=== PATIENT | female | born 1935 | race Caucasian/White ===

== ENCOUNTER 2017-12-21 08:55 | Inpatient (IN) | payer OTHER ==
[2017-11-16 08:58] VITALS: BMI 28.0
--- NOTE | 2017-11-16 09:42 | PAT Medication Instructions ---
Service Date Nov 16, 2017. Current Home Medication List Alendronate/Cholecalciferol (Fosamax+D 70MG/2800 Iu), 1 TABLET PO WK Calcium Carbonate-Vitamin D (Calcium + D), 1 TAB PO QAM Docusate Sodium (Docusate Sodium), 1 CAP PO BID Escitalopram (Lexapro), 10 MG PO HS Fluticasone Propionate (Nasal) (Flonase Allergy Relief), 2 SPRAYS INTNAS PRN Lorazepam (Ativan), 0.5 MG PO TID PRN for PRN Meclizine Hcl (Meclizine Hcl), 1 TAB PO TID PRN for DIZZINESS Mirabegron (Myrbetriq Er), 25 MG PO HS Omeprazole (Prilosec), 20 MG PO QAM Resveratrol (Resveratrol), 100 MG PO QAM Tramadol (Ultram), 50 MG PO Q6H PRN for RN Trazodone Hcl (Trazodone), 50 MG PO HS [Lisinopril-Hctz], 1 TAB PO QAM [Nystatin Powd], 1 DOSE TOP PRN Medication Instructions For Your Scheduled Surgery -Continue as directed (but do not take on the morning of surgery) Alendronate/Cholecalciferol (Fosamax+D 70MG/2800 Iu), 1 TABLET PO WK - Hold the following medications 2 weeks prior to surgery: Resveratrol (Resveratrol), 100 MG PO QAM - Hold the following medications 24 hours prior to surgery: [Nystatin Powd], 1 DOSE TOP PRN - Hold the following medications the morning of surgery: Calcium Carbonate-Vitamin D (Calcium + D), 1 TAB PO QAM Docusate Sodium (Docusate Sodium), 1 CAP PO BID [Lisinopril-Hctz], 1 TAB PO QAM - Take the following medications the morning of surgery with a sip of water: Fluticasone Propionate (Nasal) (Flonase Allergy Relief), 2 SPRAYS INTNAS PRN ( if needed) Lorazepam (Ativan), 0.5 MG PO TID PRN for PRN (if needed) Meclizine Hcl (Meclizine Hcl), 1 TAB PO TID PRN for DIZZINESS (if needed) Omeprazole (Prilosec), 20 MG PO QAM Tramadol (Ultram), 50 MG PO Q6H PRN for RN (if needed, can be taken up to four hours before surgery) - Take the following medications as scheduled the night before surgery: Docusate Sodium (Docusate Sodium), 1 CAP PO BID Escitalopram (Lexapro), 10 MG PO HS Fluticasone Propionate (Nasal) (Flonase Allergy Relief), 2 SPRAYS INTNAS PRN ( if needed) Lorazepam (Ativan), 0.5 MG PO TID PRN for PRN (if needed) Meclizine Hcl (Meclizine Hcl), 1 TAB PO TID PRN for DIZZINESS (if needed) Mirabegron (Myrbetriq Er), 25 MG PO HS Tramadol (Ultram), 50 MG PO Q6H PRN for RN (if needed) Trazodone Hcl (Trazodone), 50 MG PO HS If you have any questions please call us at [phone] or [phone] or [phone]
--- NOTE | 2017-11-16 10:22 | DIAGNOSTIC IMAGING REPORT ---
CHEST 2 VIEWS ROUTINE CLINICAL HISTORY: Preoperative chest COMPARISON STUDY: No previous studies for comparison. FINDINGS: The cardiac and mediastinal contours are normal. There is no evidence of focal pulmonary consolidation. There is no evidence of failure. No pleural effusions are visualized.[ There is a calcified right upper lobe granuloma. IMPRESSION: No active disease in the chest. Electronically signed by: Darek Collins M.D. 11/16/2017 10:21 AM Dictated Date/Time: 11/16/2017 10:20 AM
[2017-11-16 10:51] LABS: BASO % 0.7 %; BASO ABS # 0.03 K/uL (0-0.2); EOS % 3.6 %; EOS ABS # 0.15 K/uL (0-0.5); HEMATOCRIT 42.8 % (37-47); HEMOGLOBIN 14.2 g/dL (12.0-16.0); IG# 0.01 K/uL (0.00-0.02); INR 0.9 (0.9-1.1); LYMPH % 33.8 %; LYMPH ABS # 1.39 K/uL (1.2-3.4); MEAN CELL VOLUME 89.7 fL (80-100); MEAN CORPUSCULAR HEMOGLOBIN 29.8 pg (25-34); MEAN CORPUSCULAR HGB CONC 33.2 g/dl (32-36); MEAN PLATELET VOLUME 10.8 fL (7.4-10.4); MONO % 11.4 %; MONO ABS # 0.47 K/uL (0.11-0.59); NEUT % 50.3 %; NEUT ABS # 2.06 K/uL (1.4-6.5); PLATELET COUNT 202 K/uL (130-400); PTT PATIENT 24.7 SECONDS (21.0-31.0); RED CELL DISTRIBUTION WIDTH CV 14.3 % (11.5-14.5); RED CELL DISTRIBUTION WIDTH SD 46.9 fL (36.4-46.3); WHITE BLOOD COUNT 4.11 K/uL (4.8-10.8)
[2017-11-16 12:05] LABS: CALCIUM 9.1 mg/dl (8.5-10.1); CREATININE 0.9 mg/dl (0.60-1.20); POTASSIUM 3.8 mmol/L (3.5-5.1)
--- NOTE | 2017-12-15 21:11 | HISTORY & PHYSICAL EXAMINATION ---
DATE OF ADMISSION: 12/21/2017 CHIEF COMPLAINT: Right knee pain. HISTORY OF PRESENT ILLNESS: This is an 82-year-old female who presents for treatment of her right knee. She has a fairly long history of bilateral knee pain and discomfort, right side greater than left. She has been through extensive conservative treatment primarily injections. They were pretty effective initially but became less successful over time. The last shot did not help much at all. The right knee is worse than the left. The more she walks, the more she hurts. She limps as the day goes on. She would like to have her right knee fixed. PAST MEDICAL HISTORY: 1. Hypertension. 2. Anxiety/depression. 3. Arthritis. 4. Gastroesophageal reflux disease. 5. Mild obesity. PAST SURGICAL HISTORY: Hysterectomy. ALLERGIES: CODEINE WHICH CAUSES ITCHING. ALSO, DESCRIBES ALLERGY TO ASPIRIN, WHICH CAUSES GI IRRITATION. CURRENT MEDICINES: Include: 1. Lisinopril. 2. Citalopram. 3. Omeprazole. 4. Alendronate. 5. Calcium. 6. Resveratrol. SOCIAL HISTORY: An 82-year-old female. She is . Fairly active. Does not smoke. FAMILY HISTORY: Negative for heart disease, diabetes, or blood clots. REVIEW OF SYSTEMS: Negative for diabetes, neurologic problems, vascular problems and bleeding disorders. Denies any chest pain or shortness of breath. No history of DVT or PE. No known clotting disorders. PHYSICAL EXAMINATION: GENERAL: Reveals a pleasant elderly female. Looks younger than her stated age. HEENT: Benign. NECK: Supple. No lymphadenopathy. LUNGS: Clear to auscultation. HEART: Regular rate and rhythm. ABDOMEN: Soft, nontender, nondistended. EXTREMITIES: Grossly neurovascularly intact except as follows: Examination of the right knee reveals patient walks independently. She has fairly neutral alignment to her knee. She has a small knee effusion. Range of motion 0-120. No instability. No pain with hip motion. She is tender along the medial and lateral joint lines. X-RAYS: X-ray of the right knee reviewed. Shows some moderate tricompartment DJD. She has moderate disease in all 3 compartments. Still some joint space remaining. A little bit of tibial femoral subluxation. ASSESSMENT: An 82-year-old female with right knee tricompartment degenerative joint disease. She has failed conservative treatment. She would like to have her knee fixed. PLAN: We talked about treatment. She would like to have her right knee replaced. We will take her to the operating room and do a right total knee replacement. The risks and benefits of the procedure were explained to the patient including but not limited to DVT, PE, , infection, neurological injury, vascular injury, bleeding problem, pain, limited range of motion, stiffness, failure to relieve symptoms, incomplete relief of symptoms, need for further surgery in future, fracture, leg length inequality, nerve palsy, incomplete relief of symptoms. The patient understands and desires to proceed. Informed consent was obtained. We did talk about the extended recovery from knee surgery and she is aware of this. She apparently has problems with aspirin so we will use Xarelto for DVT prophylaxis for 1 month postop. We did talk about holding her lisinopril the morning of surgery. THOMAS
[2017-12-21] VITALS (7 sets, daily range): BP systolic 115–184; BP diastolic 71–83; PULSE 60–81; TEMP 36.4–36.6; O2SAT 92–98; Ht 165.1 cm; Wt 78.2 kg
[~2017-12-21] VITALS: Ht 165.1 cm; Wt 78.2 kg
[~2017-12-21 08:55] MED LIST: ACETAMINOPHEN 500 MG TAB PO SCH; BUPIVACAINE 0.25% 30 ML VIAL ONE; BUPIVACAINE 0.5 % 5 MG/1 ML PF 10ML VIAL ONE; BUPIVACAINE LIPOSOME 266 MG, BUPIVACAINE/EPINEPHRINE INJ 50 ML, SODIUM CHLORIDE 0.9% PF... INFIL SCH; CALC600T9 PO; CEFAZOLIN 2000MG IV PUSH 15 ML IV SCH; DEXAMETHASONE SOD INJ 4 MG/ML VIAL ONE; DOCU100C31 PO; ESCI10TA17 PO; EpINEphrine INJ 1MG/ML AMP 1 MG/ML AMP ONE; FAMOTIDINE 20 MG TAB PO SCH; FLUT0.15 INTNAS; FSMD/70 PO; GABAPENTIN 300 MG CAP PO SCH; LACTATED RINGER'S 1000ML 1,000 ML IV SCH; LACTATED RINGER'S 1000ML 500 ML IV SCH; LACTATED RINGER'S 1000ML IV SCH; LISINOPRIL-HCTZ PO; LORA-741 PO; MECL1TAB42 PO; METOCLOPRAMIDE HCL 10 MG TAB PO SCH; MIRA100T PO; NYSTATIN POWD TOP; PRLSR20 PO; RESV100C PO; TRAM-10 PO; TRANEXAMIC ACID INJ 1,000 MG x 1 Bag Intra-Op IV SCH; TRAZ50TA35 PO
--- NOTE | 2017-12-21 09:11 | History & Physical Bridge Note ---
H&P Re-Evaluation Bridge Note: I have examined the patient, reviewed the History & Physical and in the interval since the performance of the History & Physical I have noted the following changes of clinical significance: No changes noted
[2017-12-21] MEDS ORDERED: MIDAZOLAM HCL 1 MG/ML 2ML VIAL ONE (10:43)
[2017-12-21] MEDS ORDERED: FENTANYL CITRATE INJ 50 MCG/1 ML 2 ML VIAL ONE (10:51)
[2017-12-21] MEDS ORDERED: EpHEDrine SULFATE INJ 50 MG/ML AMP IV PRN (11:00)
[2017-12-21] MEDS ORDERED: ONDANSETRON INJ 2 MG/ML 2 ML VIAL IV PRN ×2 (11:00→13:00)
[2017-12-21] MEDS ORDERED: ATROPINE SULFATE 0.1 MG/ML 5ML SYR IV PRN (11:00)
[2017-12-21] MEDS ORDERED: FENTANYL CITRATE INJ 50 MCG/1 ML 2 ML VIAL IV PRN (11:00)
[2017-12-21] MEDS ORDERED: BACITRACIN 50000 UNIT VIAL ONE (11:10)
[2017-12-21] MEDS ORDERED: BUPIVACAINE LIPOSOME 1/3% 266 MG/20 ML VIAL INFIL ONE (11:10)
[2017-12-21] MEDS ORDERED: SODIUM CHLORIDE 0.9% PF 50 ML VIAL ONE (11:10)
[2017-12-21] MEDS ORDERED: BUPIVACAINE 0.25% 30 ML VIAL ONE (11:11)
[2017-12-21] MEDS ORDERED: PROPOFOL IV EMULSION 10 MG/ML 20 ML VIAL IV ONE (11:41)
[2017-12-21] MEDS ORDERED: LIDOCAINE HCL 2% 2 ML VIAL (20MG/ML) ONE (11:41)
--- NOTE | 2017-12-21 12:58 | [facility] Post Operative Brief Note ---
Immediate Operative Summary Operative Date Dec 21, 2017. Pre-Operative Diagnosis Right Knee Degenerative Joint Disease Post-Operative Diagnosis Same as preop Procedure(s) Performed Right Total Knee Arthroplasty Surgeon Dr. Brown Casino Banker Surgeon(s) Ayaz Banks PA-C Estimated Blood Loss 50 ml Findings Consistent with Post-Op Diagnosis Fluids (cc crystalloids) 1300 cc Specimens A. Right Knee Bone and Tissue Drains None Anesthesia Type MAC Spinal Regional Complication(s) none Disposition Accompanied Pt To Recover: no Disposition: Recovery Room / PACU
[2017-12-21] MEDS ORDERED: HYDROmorphone INJ 0.5 MG/0.5 ML SYR IV PRN (13:00)
[2017-12-21] MEDS ORDERED: MAGNESIUM HYDROXIDE SUSP 30 ML UDC PO PRN (13:00)
[2017-12-21] MEDS ORDERED: ZOLPIDEM TARTRATE 5 MG TAB PO PRN (13:00)
[2017-12-21] MEDS ORDERED: TRAMADOL HCL 50 MG TAB PO PRN (13:00)
[2017-12-21] MEDS ORDERED: METOCLOPRAMIDE HCL INJ 5 MG/ML 2 ML VIAL IV PRN (13:00)
[2017-12-21] MEDS ORDERED: ALUMINUM/MAGNESIUM/SIMETH (MAALOX MAX) 30 ML UDC PO PRN (13:00)
[2017-12-21] MEDS ORDERED: SILVER SULFADIAZINE 1% CR 50 GM JAR EXT PRN (13:00)
[2017-12-21] MEDS ORDERED: BISACODYL 10 MG SUPP PR PRN (13:00)
[2017-12-21] MEDS ORDERED: FLUTICASONE PROPIONATE NA SPR 16 GM BTL PRN (13:00)
[2017-12-21] MEDS ORDERED: NYSTATIN POWDER 15GM BTL EXT PRN (13:00)
[2017-12-21] MEDS ORDERED: MECLIZINE HCL 25 MG TAB PO PRN (13:00)
[2017-12-21] MEDS ORDERED: LORAZEPAM 0.5 MG TAB PO PRN (13:00)
--- NOTE | 2017-12-21 13:21 | DIAGNOSTIC IMAGING REPORT ---
R KNEE 1 OR 2 VIEWS ROUTINE CLINICAL HISTORY: Degenerative arthritis POSTOP STUDY COMPARISON: September 2017 DISCUSSION: There are postsurgical changes of a total right knee arthroplasty and patellar resurfacing. The femoral and tibial components appear well seated. Air within the soft tissues is felt to be postsurgical. There are anterior skin josephine present. IMPRESSION: Postsurgical changes of a total right knee arthroplasty. Electronically signed by: Darek Collins M.D. 12/21/2017 1:19 PM Dictated Date/Time: 12/21/2017 1:19 PM
--- NOTE | 2017-12-21 13:26 | Anesthesiology Progress Note ---
Anesthesia Post Op Note Date & Time Dec 21, 2017 at 13:26 Vital Signs Pain Intensity: 0 Vital Signs Past 12 Hours Date Time Temp Pulse Resp B/P (MAP) Pulse Ox O2 Delivery O2 Flow Rate FiO2 12/21/17 13:20 70 13 135/65 99 Nasal Cannula 2 12/21/17 13:10 76 27 135/65 97 Nasal Cannula 2 12/21/17 13:04 36.2 83 16 128/70 95 Nasal Cannula 2 12/21/17 09:25 36.6 81 20 135/83 95 Room Air Notes Mental Status: alert / awake / arousable, participated in evaluation Pt Amnestic to Procedure: Yes Nausea / Vomiting: adequately controlled Pain: adequately controlled Airway Patency, RR, SpO2: stable & adequate BP & HR: stable & adequate Hydration State: stable & adequate Neuraxial Anesthesia: was administered, sensory block is resolving Anesthetic Complications: no major complications apparent
[2017-12-21] MEDS: TRAMADOL HCL 50 MG TAB PO PRN ×2 (17:04→22:18)
[2017-12-21] MEDS: D5W AND 1/2NSS + 20MEQ KCL 1,000 ML IV SCH (17:56)
[2017-12-21] MEDS: FERROUS GLUCONATE 324 MG TAB PO SCH (17:56)
[2017-12-21] MEDS: KETOROLAC TROMETHAMINE 15 MG/ML VIAL IV. SCH ×2 (17:57→23:24)
[2017-12-21] MEDS ORDERED: NURSING VERBAL MED ORDER ONE (18:15)
[2017-12-21] MEDS ORDERED: LISINOPRIL/HCTZ 10/12.5MG TAB PO ONE (18:30)
[2017-12-21] MEDS ORDERED: TRANEXAMIC ACID INJ 1,000 MG in SODIUM CHLORIDE 0.9% 100ML 100 ML IV SCH (19:00)
--- NOTE | 2017-12-21 19:49 | OPERATIVE REPORT ---
DATE OF OPERATION: 12/21/2017 SURGEON: J Luis Brown MD. EMPLOYEE DEVELOPMENT DIRECTOR: CHRISTOPHER Lemos. PREOPERATIVE DIAGNOSIS: Right knee degenerative joint disease. POSTOPERATIVE DIAGNOSIS: Same. PROCEDURE PERFORMED: Right cemented posterior stabilized total knee arthroplasty. COMPLICATIONS: None. ESTIMATED BLOOD LOSS: 50 mL. FLUID REPLACEMENT: 1300 mL of crystalloid fluid replacement. TOURNIQUET TIME: 49 minutes at 300 mmHg. ANESTHESIA: Spinal with adductor canal block. DRAINS: None. SPECIMENS: Right knee sent for pathology. OPERATIVE INDICATIONS: The patient is an 82-year-old fairly active female who has had a long history of bilateral knee pain and discomfort. She has been through extensive conservative treatment. She does have a history of a right knee arthroscopy done in the past. X-ray showed some moderate DJD. She really failed conservative treatment and was really limited by her knee pain and she elected to have total knee arthroplasty. OPERATIVE FINDINGS: Operative findings revealed moderate right knee DJD. She did have some spotty grade 4 changes in all 3 compartments. Most of her degenerative changes were grade 2 and 3. She did have a moderate size joint effusion. Not a lot of osteophytes. There was no significant eburnation. As stated, she did have some focal grade 4 changes in all 3 compartments. OPERATIVE IMPLANTS: Operative implants consisted of: 1. Biomet Vanguard size 65 right posterior stabilizing component. 2. Biomet size 71 tibial tray. 3. A 10 mm posterior stabilized polyethylene insert. 4. A 31 x 8 all poly patella. OPERATIVE PROCEDURE: The patient taken to the operating room, identified and placed on the operative table in supine position. All contact areas were appropriately padded. IV antibiotics were provided by anesthesia team. A spinal anesthetic and adductor canal block had been provided in the holding area. Adler catheter was placed in sterile fashion. Right thigh tourniquet was then placed and the right lower extremity was then prepped and draped in usual sterile fashion. The right leg was elevated and exsanguinated with Esmarch and tourniquet was placed at 300 mmHg. An anterior approach of the right knee was then performed through a longitudinal incision centered over the patella. Sharp dissection carried through the subcutaneous tissue down to the level of the extensor mechanism. Medial parapatellar arthrotomy incision was made. Some subperiosteal dissection was carried out medially. The fat pad resected from beneath the patellar tendon. Lateral patellofemoral ligament was released. Patella was everted and knee was flexed. The osteophytes were taken off the distal femur. ACL and PCL were then released and the distal femur and the tibia subluxated anteriorly. The external tibial alignment jig was then placed in the anterior face of the tibia and adjusted 12 mm medially. Proximal tibial cut was made to remove about 3-4 mm of bone from the medial side. Tibia was sized to a size 71. Attention was then drawn to the femur. The distal femur was entered with a sharp drill bit. Intramedullary canal was suctioned. A right 5 degree valgus cutting guide was placed. The distal femoral cutting block was pinned in place. Distal femoral cut was made to take an additional 3 mm of bone off the distal femur. The femur was then sized and I downsized this in entire size to a 65 narrow medial lateral dimensions of the femur. Even the 65 was going to be a little bit big. The AP cutting block was pinned parallel to the epicondylar axis, which was 4 degrees of external rotation. The anterior cut, anterior chamfer cut, posterior cut, posterior chamfer cuts were made. Box cutting guide was placed and adjusted slight laterally and the box cut was made. The knee was flexed. The remnants of medial lateral menisci were excised. The osteophytes were taken off the posterior aspect of the femur. A trial femoral component was placed. Tibial tray was pinned in maximum external rotation and drill and stem punch were used to create defect in proximal tibia for the tibial tray. The knee was then trialed and the 10 mm insert fit most appropriately. Attention was then drawn to the patella. The patella was cleaned of all soft tissues. Patella thickness measured 20 mm in thickness and cut down to 13. It was sized to a size 31 patella. Lug holes were drilled for 31 patella. Lateral osteophyte was removed. Patella button was placed. Knee was taken through range of motion, patella tracked nicely with no thumbs test. Attention was then drawn toward placement of permanent components. All trial components were removed. A bone plug was placed in the distal femur to limit blood loss. A double batch of Palacos G cement was mixed. A right size 65 posterior stabilized femoral component, size 71 tibial tray, a 10 mm posterior stabilized polyethylene insert, and a 31 x 8 all poly patella then cemented in place. Knee was brought out into full extension until cement hardened and a final cement check was then performed. Pericapsular tissues were injected with a total of 100 mL of a combination of 20 mL of Exparel, 30 mL of normal saline, 50 mL of 0.25% Marcaine with epinephrine. The patient did receive 1 gram of tranexamic acid. The tourniquet was then let down for a tourniquet time of 49 minutes. Hemostasis was assured using electrocautery. The wound was then irrigated with copious amounts of pulsatile lavage solution. Extensor mechanism was then closed with a combination of #1 PDS and #1 Vicryl suture in a [id number] fashion. Extensor mechanism was checked and found to be intact. The subcutaneous tissue then closed with #2 Dexon suture in buried interrupted fashion. Skin was closed skin josephine. Leg was then cleaned, dried and a sterile dressing of Xeroform, 4 x 4, sterile cast padding and Earnest bandage were applied. The patient then transferred to the recovery room in stable condition. The patient tolerated the procedure with no complication. All needle and sponge counts were correct at the end of the operation. I attest to the content of the Intraoperative Record and any orders documented therein. Any exception s are noted below.
--- NOTE | 2017-12-21 20:20 | PROGRESS NOTE ---
DATE: 12/21/2017 SUBJECTIVE: An 82-year-old female postop from a right knee replacement. She is doing well. Pain is controlled. Denies any chest pain or shortness of breath. Not feeling dizzy or lightheaded. OBJECTIVE: VITAL SIGNS: Temperature 36.6. Vital signs stable. Mild hypertension. GENERAL: Reveals a pleasant elderly female patient sitting up in bed and looks comfortable. LUNGS: Clear to auscultation. HEART: Regular rate and rhythm. ABDOMEN: Soft, nontender, nondistended. EXTREMITIES: Grossly neurovascularly intact except as follows: Examination of the right leg reveals the dressing to be clean, dry and intact. She can dorsiflex and plantarflex her foot appropriately. She has brisk refill. X-RAYS: X-ray of the right knee from recovery room reviewed. It shows a right cemented posterior stabilized total knee arthroplasty. Components looked to be in good position. No signs of problems. ASSESSMENT: An 82-year-old female postop from a right knee replacement, doing well. Pain is controlled. She is neurologically intact. PLAN: 1. DVT prophylaxis including thigh-high TEDs, SCDs, and aspirin twice a day. 2. PT/OT. Weight bear as tolerated. Right total knee protocol. 3. Pain control, doing well with current pain regimen. Does not do well with narcotics and will have to be careful to try and limit those. 4. IV antibiotics x24 hours. 5. Disposition: Plan to discharge to home likely with some home health once adequately recovered.
[2017-12-21] MEDS: TRAZODONE HCL 50 MG TAB PO SCH (20:26)
[2017-12-21] MEDS: ESCITALOPRAM OXALATE 10 MG TAB PO SCH (20:26)
[2017-12-21] MEDS: MIRABEGRON ER 25 MG TAB PO SCH (20:26)
[2017-12-21] MEDS: SENNA 8.6 MG TAB PO SCH (20:27)
[2017-12-21] MEDS: DOCUSATE SODIUM 100 MG CAP PO SCH (20:27)
[2017-12-21] MEDS: ACETAMINOPHEN 500 MG TAB PO SCH (20:28)
[2017-12-21] MEDS: CEFAZOLIN IV 1,000 MG in SYRINGE 0 ML IV SCH (20:38)
[2017-12-21] MEDS ORDERED: DOCUSATE SODIUM 100 MG CAP PO SCH (21:00)
[2017-12-22] VITALS (8 sets, daily range): BP systolic 113–156; BP diastolic 60–79; PULSE 65–85; TEMP 36.7–36.9; O2SAT 91–95
[2017-12-22] MEDS: D5W AND 1/2NSS + 20MEQ KCL 1,000 ML IV SCH ×2 (03:02→12:32)
[2017-12-22] MEDS: CEFAZOLIN IV 1,000 MG in SYRINGE 0 ML IV SCH (03:36)
[2017-12-22] MEDS: KETOROLAC TROMETHAMINE 15 MG/ML VIAL IV. SCH ×4 (05:30→23:40)
[2017-12-22] MEDS: ACETAMINOPHEN 500 MG TAB PO SCH ×3 (05:30→22:11)
[2017-12-22] MEDS ORDERED: ULT50X PO (07:55)
[2017-12-22] MEDS ORDERED: ACET-24 PO (07:55)
[2017-12-22] MEDS ORDERED: XRL10 PO (07:55)
[2017-12-22 07:56] LABS: HEMOGLOBIN 11.3 g/dL (12.0-16.0); MEAN CORPUSCULAR HEMOGLOBIN 29.6 pg (25-34); MEAN CORPUSCULAR HGB CONC 33.2 g/dl (32-36); PLATELET COUNT 211 K/uL (130-400); WHITE BLOOD COUNT 10.56 K/uL (4.8-10.8)
--- NOTE | 2017-12-22 07:57 | Discharge Instructions ---
Discharge Instructions Date of Service Dec 22, 2017. Admission Reason for Admission: Right Knee Degenerative Joint Disease Discharge Discharge Diagnosis / Problem: Right Knee Replacement Discharge Goals Goal(s): Decrease discomfort, Improve function, Increase independence, Improve disease control, Therapeutic intervention Activity Recommendations Activity Limitations: per Instructions/Follow-up section Weightbearing Status: Right weightbearing . Instructions / Follow-Up Instructions / Follow-Up ACTIVITY RECOMMENDATIONS: Physical Therapy: * You will go to physical therapy three times each week for four to six weeks after your surgery in order to regain your knee range of motion and to retrain your knee to work properly. * It is just as important to make sure you are getting your knee perfectly straight as it is to regain your knee bend. * Taking a pain pill an hour before therapy can help you have a more productive and comfortable therapy session. Home Exercise: * You were shown a series of exercises (heel props, heel slides, etc.) in the hospital. Do these exercises three to four times each day including the exercises you were shown in physical therapy. Walking: * Get up and walk several times each day. For the first four weeks, try not to stand or walk for more than one hour at a time. If you do stand or walk for more than one hour, you will not hurt anything, but your knee and leg will likely swell. * As you feel comfortable, you may change from the walker or crutches to a cane and then to independent walking. MEDICATIONS: New Medicine: * You will likely be taking one or more of these medications: 1. Tramadol - A quick and shorter-acting pain medication. Take one to two tablets every four to six hours to lessen your pain. 2. Xarelto - Thins your blood to lessen the chance of forming a blood clot. * The most common side effects of pain medicine and iron are nausea and constipation. If nausea or constipation is too much of a problem or if you have any questions about your new medicines or doses, call [facility] at . We will try to help you manage these issues. VERY IMPORTANT TO READ AND REVIEW" Pain: * The immediate post-operative period after knee replacement surgery is often quite painful. * You are given a prescription for pain medicine. You should take it, as directed, when you need it, especially before physical therapy and before going to bed. Pain that interferes with sleep is very common and can last several months. * You will likely need pain medicine for the first four to six weeks. It will not stop all of the pain. The pain will lessen and as you feel better, you may change to milder pain medicine such as Tylenol. * The most common side effects of pain medicine are nausea and constipation, so don't take more than you need. SPECIAL CARE INSTRUCTIONS: TEDs/Elastic Stockings: * The white elastic stockings help limit swelling and prevent blood clots from forming in your legs. The more you wear them, the more they work. * Wear them for six weeks after knee replacement surgery and four weeks after partial knee replacement. Prevention of Infection: * Take antibiotics one hour before any dental cleaning, dental work, urological procedure, gastrointestinal procedure or any invasive surgery in order to prevent your new joint from getting infected. * You may get the antibiotics from the doctor performing the procedure or you may call our office at before and we will call in a prescription to the pharmacy of your choice. Things to Watch For: * Drainage from the incision site that occurs more than one week after your surgery. * Severely increased knee/leg pain or swelling. * Increased redness at the incision site. * Fever above 102 degrees Fahrenheit. * Unusual chest pain or shortness of breath. * Unusual pain or burning with urination. Call [facility] at with any of the above problems or if you have any questions about your medicines or recovery. FOLLOW UP VISIT: Make an appointment to see your doctor for approximately two weeks after surgery for a progress check and staple removal by calling the office at . Current Hospital Diet Patient's current hospital diet: Regular Diet Discharge Diet Recommended Diet: Regular Diet Procedures Procedures Performed: Right Total Knee Arthroplasty Pending Studies Studies pending at discharge: no Medical Emergencies . Who to Call and When: Medical Emergencies: If at any time you feel your situation is an emergency, please call [phone] immediately. . Non-Emergent Contact Non-Emergency issues call your: Surgeon . "Provider Documentation" section prepared by J Luis Brown. .
--- NOTE | 2017-12-22 08:00 | PROGRESS NOTE ---
DATE: 12/22/2017 SUBJECTIVE: An 82-year-old female postop day 1 from right total knee replacement. She is doing pretty well. Some pain, but manageable. No chest pain or shortness of breath. Not feeling dizzy or lightheaded. OBJECTIVE: VITAL SIGNS: Temperature 36.9. Vital signs stable. EXTREMITIES: Examination of the right leg reveals the dressing to be clean, dry and intact. Leg is well aligned. She can dorsiflex and plantarflex her foot appropriately. She is neurologically intact. LABORATORY DATA: Labs are pending. ASSESSMENT: An 82-year-old female postop day 1 from right knee replacement, doing pretty well. Pain is controlled. Blood pressure is improved. PLAN: 1. DVT prophylaxis including thigh-high TEDs, SCDs, and Xarelto, which we will start 24 hours postop due to her aspirin sensitivity. 2. PT/OT. Weight bear as tolerated. Right total knee protocol. 3. Pain control, doing well with current pain regimen. 4. Disposition: Plan to discharge to home with some home health once adequately recovered.
[2017-12-22 08:19] LABS: CREATININE 0.9 mg/dl (0.60-1.20); POTASSIUM 3.8 mmol/L (3.5-5.1)
[2017-12-22] MEDS ORDERED: RESVERATROL 100 MG PO SCH (09:00)
[2017-12-22] MEDS ORDERED: PANTOprazole SOD 40 MG TAB PO SCH (09:00)
[2017-12-22] MEDS: CALCIUM 600MG + VIT D 400 IU TAB PO SCH (09:24)
[2017-12-22] MEDS: DOCUSATE SODIUM 100 MG CAP PO SCH ×2 (09:24→22:11)
[2017-12-22] MEDS: FERROUS GLUCONATE 324 MG TAB PO SCH ×3 (09:24→17:44)
[2017-12-22] MEDS: MULTIVITAMIN TAB PO SCH (09:24)
[2017-12-22] MEDS: LISINOPRIL/HCTZ 10/12.5MG TAB PO SCH (09:25)
[2017-12-22] MEDS: TRAMADOL HCL 50 MG TAB PO PRN ×3 (09:25→19:36)
[2017-12-22] MEDS: PANTOprazole SOD 40 MG TAB PO SCH (09:25)
--- NOTE | 2017-12-22 10:43 | Anesthesiology Progress Note ---
Anesthesia Post Op Note Date & Time Dec 22, 2017 at 10:42 Vital Signs Vital Signs Past 12 Hours Date Time Temp Pulse Resp B/P (MAP) Pulse Ox O2 Delivery O2 Flow Rate FiO2 12/22/17 10:00 95 Room Air 12/22/17 09:13 94 Room Air 12/22/17 07:30 36.8 65 14 130/60 (83) 94 Room Air 12/22/17 03:03 36.9 85 14 114/72 (86) 95 Room Air 12/21/17 23:25 Room Air 12/21/17 23:13 36.6 76 15 129/72 (91) 92 Room Air Notes Mental Status: alert / awake / arousable, participated in evaluation Pt Amnestic to Procedure: Yes Nausea / Vomiting: adequately controlled Pain: adequately controlled Airway Patency, RR, SpO2: stable & adequate BP & HR: stable & adequate Hydration State: stable & adequate Neuraxial Anesthesia: sensory block resolved Anesthetic Complications: no major complications apparent
[2017-12-22] MEDS: RIVAROXABAN 10 MG TAB PO SCH (13:51)
[2017-12-22] MEDS: ESCITALOPRAM OXALATE 10 MG TAB PO SCH (22:10)
[2017-12-22] MEDS: TRAZODONE HCL 50 MG TAB PO SCH (22:10)
[2017-12-22] MEDS: MIRABEGRON ER 25 MG TAB PO SCH (22:10)
[2017-12-22] MEDS: SENNA 8.6 MG TAB PO SCH (22:10)
[2017-12-23] MEDS: ACETAMINOPHEN 500 MG TAB PO SCH (06:14)
[2017-12-23] MEDS: KETOROLAC TROMETHAMINE 15 MG/ML VIAL IV. SCH (06:14)
[2017-12-23 07:22] VITALS: BP 155/81; PULSE 69; TEMP 36.6; O2SAT 95
--- NOTE | 2017-12-23 07:45 | PROGRESS NOTE ---
DATE: 12/23/2017 SUBJECTIVE: An 82-year-old white female postop day 2 from right knee replacement. She is doing pretty well. Pain is controlled. Denies any chest pain or shortness of breath. Not feeling dizzy or lightheaded. OBJECTIVE: VITAL SIGNS: Temperature 36.6. Vital signs stable. GENERAL: Reveals a pleasant elderly female. She is sitting up in bed and looks pretty comfortable. EXTREMITIES: Examination of the right leg reveals the dressing to be in place. A little bit of bloody drainage in the inferior aspect. Calf is soft and supple. She can dorsiflex and plantarflex her foot appropriately. She is neurologically intact. ASSESSMENT: An 82-year-old white female postop day 2 from right knee replacement, doing pretty well. Pain is reasonably well controlled. PLAN: 1. DVT prophylaxis including thigh-high TEDs, SCDs, and Xarelto for 30 days. 2. PT/OT. Weight bear as tolerated. Right total knee protocol. 3. Pain control. Doing reasonably well with current pain regimen. 4. Disposition: Plan to discharge to home with some home health later today.
[2017-12-23 07:50] VITALS: BP 155/81; PULSE 69; TEMP 36.6; O2SAT 95
[2017-12-23] MEDS: LISINOPRIL/HCTZ 10/12.5MG TAB PO SCH (09:06)
[2017-12-23] MEDS: PANTOprazole SOD 40 MG TAB PO SCH (09:06)
[2017-12-23] MEDS: FERROUS GLUCONATE 324 MG TAB PO SCH (09:06)
[2017-12-23] MEDS: CALCIUM 600MG + VIT D 400 IU TAB PO SCH (09:06)
[2017-12-23] MEDS: RIVAROXABAN 10 MG TAB PO SCH (09:06)
[2017-12-23] MEDS: TRAMADOL HCL 50 MG TAB PO PRN (09:06)
[2017-12-23] MEDS: MULTIVITAMIN TAB PO SCH (09:06)
[2017-12-23] MEDS: DOCUSATE SODIUM 100 MG CAP PO SCH (09:54)
== END 2017-12-23 13:55 | disposition home health service (06) | DRG 470 ==
LOC: C.ACU 08:55 → C.MSN 13:03 → ENRESERV 13:27
PROVIDERS: ADMIT Orthopaedic Surgery Sports Medicine; ATTEND Orthopaedic Surgery Sports Medicine
PROC: 0SRC0J9 Replacement of Right Knee Joint with Synthetic Substitute, Cemented, Open Approach (ICD-10-PCS; principal; 2017-12-21 11:00)
DX: M17.11 Unilateral primary osteoarthritis, right knee (principal); I10 Essential (primary) hypertension; F41.9 Anxiety disorder, unspecified; F32.9 Major depressive disorder, single episode, unspecified; K21.9 Gastro-esophageal reflux disease without esophagitis; Z90.710 Acquired absence of both cervix and uterus; Z88.5 Allergy status to narcotic agent; Z88.6 Allergy status to analgesic agent

== ENCOUNTER 2021-02-23 11:33 | Inpatient (IN) ==
[2021-02-23 12:12] LABS: Basophils # (auto) 0.01 K/uL (0-0.2); Basophils % (auto) 0.2 %; Hematocrit (blood only) 41.7 % (37-47); Immature Granulocytes # (auto) 0.04 K/uL (0.00-0.02); Immature Granulocytes % (auto) 0.7 %; Lymphocytes # (auto) 0.49 K/uL (1.2-3.4); Lymphocytes % (auto) 8.2 %; Mean Corpuscular Hemoglobin 30.6 pg (25-34); Mean Corpuscular Hgb Conc 33.6 g/dL (32-36); Mean Corpuscular Volume 91.2 fL (80-100); Mean Platelet Volume 10.4 fL (7.4-10.4); Monocytes # (auto) 0.24 K/uL (0.11-0.59); Neutrophils # (auto) 5.23 K/uL (1.4-6.5); Neutrophils % (auto) 86.9 %; Platelet Count 130 K/uL (130-400); RDW Coefficient of Variation 14.2 % (11.5-14.5); RDW Standard Deviation 48.1 fL (36.4-46.3); Red Blood Count 4.57 M/uL (4.2-5.4); White Blood Count 6.01 K/uL (4.8-10.8)
[2021-02-23] MEDS ORDERED: MECLIZINE HCL 25 MG TAB PO STA (12:13)
[2021-02-23] MEDS ORDERED: ONDANSETRON INJ 2 MG/ML 2 ML VIAL IV STA (12:13)
[2021-02-23] MEDS ORDERED: SODIUM CHLORIDE 0.9% 1000ML 1,000 ML IV SCH ×2 (12:14→17:36)
[2021-02-23 12:38] LABS: Alanine Aminotransferase 51 U/L (12-78); Albumin Level 3.3 gm/dl (3.4-5.0); Aspartate Aminotransferase 67 U/L (15-37); BUN Creatinine Ratio 25.9 (10-20); Blood Urea Nitrogen 23 mg/dl (7-18); Calcium 8.2 mg/dl (8.5-10.1); Carbon Dioxide 27 mmol/L (21-32); Chloride 98 mmol/L (98-107); Creatinine Clr Calc Pharmacy 48.8 ml/min; Est GFR (African American) 68.5 ml/min; Est GFR (Non-African American) 59.1 ml/min; Glucose 123 mg/dl (70-99); Magnesium 2.3 mg/dl (1.8-2.4); Potassium 3.7 mmol/L (3.5-5.1); Sodium 133 mmol/L (136-145)
[2021-02-23 12:43] LABS: Albumin Globulin Ratio 0.9 (0.9-2); Alkaline Phosphatase 68 U/L (45-117); Globulin 3.6 gm/dl (2.5-4.0); Total Protein 6.9 gm/dl (6.4-8.2); Troponin I < 0.015 ng/ml (0-0.045)
[2021-02-23 12:57] LABS: Appearance Urine Cloudy (Clear); Blood Urine 2+ (Negative); Color Urine Dark Yellow; Epithelial Cell Urine Auto >30 /lpf (0-5); Glucose Urine UA Negative (Negative); Ketones Urine 1+ (Negative); Leukocyte Esterase Urine 2+ (Negative); Nitrite Urine Negative (Negative); Protein Urine 2+ (Negative); Urobilinogen Urine Negative (Negative); WBC Urine Automated >30 /hpf (0-5); pH Urine 5.5 (4.5-7.5)
[2021-02-23 13:02] LABS: Bilirubin Urine 1+ (Negative)
[2021-02-23 13:05] LABS: Influenza A virus by PCR Negative (Negative); Influenza B virus by PCR Negative (Negative)
--- NOTE | 2021-02-23 13:40 | XRay Report ---
XR chest 1V portable CLINICAL HISTORY: SEPSIS COMPARISON STUDY: Chest radiograph November 16, 2017. FINDINGS: Lung volumes are normal. Lungs are clear. There is no pneumothorax or pleural effusion. Car diac size is normal. Mediastinal contours are normal. There is no evidence for pulmonary edema. Calci fied right midlung nodule is present. This is unchanged. Suspected calcified right hilar and subcarin al lymph nodes are unchanged and suggest previous granulomatous process. IMPRESSION: No acute cardiopulmonary findings. ACT 112: Negative or not required by law. Electronically signed by: Steffen Calderon M.D. 02/23/2021 1:38 PM
[2021-02-23 13:46] LABS: Partial Thromboplastin Ratio 1.1; Partial Thromboplastin Time 28.2 Seconds (21.0-31.0); Prothrombin Time 10.2 Seconds (9.0-12.0)
[2021-02-23 13:59] LABS: Cast Urine Automated 0 /lpf (0-5); Mucus Urine Present (None Prsent)
[2021-02-23 14:00] LABS: Amorphous Sediment Urine Present (None Prsent); Bacteria Urine Automated 1+ (Negative)
--- NOTE | 2021-02-23 14:17 | CT Scan Report ---
CT head/brain wo con CLINICAL HISTORY: dizziness COMPARISON STUDY: No previous studies for comparison. TECHNIQUE: Axial CT of the brain is performed from the vertex to the skull base. IV contrast was not administered for this examination. A dose lowering technique was utilized adhering to the principles of ALARA. CT DOSE: FINDINGS: No acute intracranial hemorrhage, no midline shift or space occupying lesions seen. Evaluation is slightly limited due to motion and beam hardening artifact. Mild atrophic changes of brain parenchyma are seen and associated with ex vacuo dilatation of ventric les. No significant white matter changes are seen. No acute depressed skull fractures seen. Visualized paranasal sinuses are patent and well-aerated. Partial opacification of inferior right mas toid air cells might represent mastoiditis. IMPRESSION: No acute intracranial hemorrhage, no midline shift or space occupying lesions. Possible mastoiditis on the right. Please correlate these findings with clinical presentation and ankita or history of mastoiditis. Atrophic changes of brain parenchyma associated with the axial, dilatation of ventricles. ACT 112: Negative or not required by law. The above report was generated using voice recognition software. It may contain grammatical, syntax o r spelling errors. Electronically signed by: Deidre Hu DO 02/23/2021 2:15 PM
--- NOTE | 2021-02-23 14:27 | CT Scan Report ---
CT SCAN OF THE ABDOMEN AND PELVIS WITHOUT CONTRAST CLINICAL HISTORY: fever hematuria COMPARISON STUDY: No previous studies for comparison. TECHNIQUE: CT scan of the abdomen and pelvis was performed from the lung bases to the proximal femurs . Images are reviewed in the axial, sagittal, and coronal planes. IV contrast was not administered fo r this examination. A dose lowering technique was utilized adhering to the principles of ALARA. CT DOSE: 1115.65 mGy.cm FINDINGS: Lower chest: Mild atelectasis at the dependent portions of bilateral lower lobes. Liver: The unenhanced liver is normal in size, contour, and attenuation. There is no intrahepatic tarah iary ductal dilatation. Gallbladder: Unremarkable. Spleen: Spleen is prominent. Multiple calcification within splenic parenchyma are seen and could repr esent sequela from remote granulomatous process. Pancreas: Unremarkable. Adrenal glands: Unremarkable. Kidneys: No hydronephrosis or nephrolithiasis seen. Extrarenal pelvis is seen on the right. Bowel: Small hiatal hernia is seen. Duodenal diverticulum was demonstrated. Bowel loops are nondilate d. Appendix is not well seen. Diverticulosis of sigmoid colon is seen. Questionable focal area of sli ghtly increased fat stranding surrounding distal sigmoid colon within inferior portion of the right p sonya is seen and might represent developing diverticulitis (5/377) Peritoneum: There is no intraperitoneal free air or abdominal ascites. Vasculature: The abdominal aorta is tortuous with scattered calcifications of its wall. No aortic dil atation is seen. Adenopathy: None. Pelvic viscera: Normal appearance of the bladder which is fluid-filled. Uterus is surgically absent. Pelvic ring is demonstrated. Skeletal structures: Multilevel degenerative changes of the spine. IMPRESSION: 1. No hydronephrosis or nephrolithiasis. 2. Fluid-filled urinary bladder. Pelvic ring. 3. Possible developing diverticulitis within inferior right aspect of the pelvis as detailed above. 4. Small hiatal hernia. 5. Other findings as above. ACT 112: Negative or not required by law. The above report was generated using voice recognition software. It may contain grammatical, syntax o r spelling errors. Electronically signed by: Deidre Hu DO 02/23/2021 2:26 PM
--- NOTE | 2021-02-23 14:52 | History & Physical Report ---
Date of Service February 23, 2021 Assessment & Plan (1) Nausea and vomiting: -Admit to med telemetry -NSS at 80 mL/h x 1 L, allow clear liquid diet since she is drinking at bedside and tolerating it, advance diet as tolerated -Continue antiemetics -No signs for hematemesis, hematochezia, tarry stools, diarrhea, etc. - CT of the head reviewed showing concern for right-sided mastoiditis, no redness, tenderness, or history of such. She reports dizziness however this is chronic in the past few years, follows with neurology as an outpatient, meclizine improves her symptoms which she did take today and helped. -CT of the abdomen is reviewed showing questionable diverticulitis, however she is not acutely tender on examination, nondistended, no changes in bowel habits. -We will continue on IV Rocephin, Flagyl and vancomycin as was started in the ER to cover these possible multiple infectious sources. Unsure at this time which source is causing the majority of her symptoms. - Abd pain associated with pessary - will consult [employer] to see if able to be removed here and refitted. (2) UTI (urinary tract infection): -Suspected -UA appears to be dirty with + esterase, >30 WBC, 1+ bacteria -Patient denies any urinary symptoms including frequency dysuria or hematuria -She reports having uncomfortable pessary which she has been followed as an outpatient for, reports that it is causing abdominal aching and pain, has difficulty sitting, nearly not able to perform ADLs due to distraction from pain -[employer]IVE consult (3) Vertigo: - Hx of Vestibular migraine? followed with neurology as an outpatient for vocal tremor/paralysis? - Reports meclizine helps with sx but that this has been chronic - Consult neuro for recs regarding if mastoiditis above concerning/causing vertigo (4) Hyponatremia: -Likely secondary to GI losses, 133 on admission, replace with NSS. -Monitor a.m. BMP (5) HTN (hypertension): - Holding HCTZ while giving IVFs - Continue lisinopril, creatinine currently stable at 0.9, BUN 23 (6) Osteoarthritis: -History of such, uses Tylenol 1300 mg typically daily for pain - will convert to q6h dosing since do not have extended release tylenol here. -Took this amount of Tylenol yesterday for fever of 101.5 at home (7) Osteoporosis: -Takes Fosamax once weekly on , missed last week's dose due to nausea vomiting. (8) GERD (gastroesophageal reflux disease): -Continue omeprazole 40 mg every morning (9) Anxiety: - may continue trazodone 100 mg HS for sleep, and lorazepam 0.5 mg prn, she typically only uses this once every other day. DVT ppx: - teds, scds CODE: Full code Dispo: From home, likely to remain in the hospital x 1-2 days History of Present Illness Primary Care Provider: Merritt Mac MD This is an 85-year-old female with PMHx of hypertension, GERD with small hiatal hernia, osteoarthritis, osteoporosis, anxiety, who presents to the ER for not feeling well x 4 days. She was seen at urgent care clinic earlier today. Complaints of nausea/vomiting started last night, weakness, fatigue and malaise today, with tmax of 100.7 here in the ER. She had fever of 101.7 at home yesterday, but resolved with tylenol. She had an episode of vertigo this morning and took meclizine which seemed to improve her dizziness. She has had ongoing issues with dizziness for many months. She has previously followed with neuro. Pt notes she typically uses meclizine which improves her sx, at least daily. Pt reports some blurred vision last night and currently a faint headache. She does not endorse room spinning. Pt did have issues with balance earlier today where typically she walks without difficulty. Pt was concerned that she had COVID but on testing she is COVID-19 negative in the ER. She received the COVID-19 vaccine in November. Her daughter is present with her here at bedside and supports the history. UA is dirty, positive esterase, >30 WBC, 1+ bacteria, WBC = 10.56. Febrile with Tmax of 100.7. She is slightly hyponatremic with sodium of 133. procal is 0.58. CT of the head is concerning for a possible right sided mastoiditis however the patient does not provider ROS regarding pain, drainage from ear, meningeal symptoms. CT of the abd/pelvis is concerning for a possible diverticulitis as well. Allergies Allergy/AdvReac Type Severity Reaction Status Date / Time codeine Allergy Mild ITCHY Verified 02/23/21 14:26 aspirin AdvReac Mild ADBOMINAL Verified 02/23/21 14:26 PAIN morphine AdvReac Mild DISORIENTED Verified 02/23/21 14:26 -"GOONY" Home Medications Medication Instructions Recorded Confirmed Type calcium carbonate-vitamin D3 1 cap PO QAM #0 11/16/17 02/23/21 History [Calcium 600 with Vitamin D3] docusate sodium 100 mg PO BID 7 Days #14 cap 11/16/17 02/23/21 History escitalopram oxalate 10 mg PO HS #0 tab 11/16/17 02/23/21 History fluticasone propionate [Flonase 2 spray INTRANASAL DAILY PRN #0 11/16/17 02/23/21 History Allergy Relief] lorazepam 0.5 mg PO TID PRN #0 tab 11/16/17 02/23/21 History meclizine 25 mg PO TID PRN 10 Days #30 tab 11/16/17 02/23/21 History mirabegron 25 mg PO HS #0 tab 11/16/17 02/23/21 History nystatin 1 applic TOPICAL DAILY PRN #0 11/16/17 02/23/21 History omeprazole 40 mg PO QAM #0 cap 11/16/17 02/23/21 History acetaminophen [Tylenol Arthritis] 1,300 mg PO Q12H PRN 02/23/21 02/23/21 History alendronate 70 mg PO WK 02/23/21 02/23/21 History hydrochlorothiazide 12.5 mg PO QAM 02/23/21 02/23/21 History lisinopril 10 mg PO QAM 02/23/21 02/23/21 History trazodone 100 - 150 mg PO HS 02/23/21 02/23/21 History Past Med/Surg History Medical History (Updated 02/23/21 @ 19:35 by Denise Lubin PA-C) GERD (gastroesophageal reflux disease) HTN (hypertension) No pertinent family history Osteoarthritis Osteoporosis Surgical History (Updated 02/23/21 @ 15:22 by Lowell Garcia) No pertinent past surgical history Social History Smoking Status: Unknown if ever smoked Second Hand Exposure: No; Do You Dip or Chew Tobacco: No; Tobacco Cessation Education Requested by Patient: No Hx Alcohol Use: No Hx Substance Use: No Preferred Language: Chadian Communication Ability: Effective Beliefs That Will Affect Care: None Current Living Situation: Spouse Other Information That Helps Us Care for You: Yes Feels Safe at Home: Yes Safety Concerns: Feels Safe At This Time Review of Systems Review of Systems: Constitutional: + fever, + sweats, no chills Eyes: No diplopia, no worsening or blurred vision ENT: normal hearing, no trouble swallowing Respiratory: No cough, sputum, dyspnea at rest or on exertion Cardiovascular: No chest pain, tightness or palpitations Abdomen: No pain, + nausea, +vomiting, no diarrhea or constipation, last BM was this morning was formed and soft. Musculoskeletal: + diffused malaise, chronic arthritis and baseline joint pain is exacerbated, no calf pain, no swelling Neurologic: + generalized weakness, + had difficulty walking today, no numbness/tingling, or balance problems at baseline Psychiatric: + anxiety and uses benzo for relief about once every other day. Skin: No rash or itch Physical Exam Physical Exam: General: awake, alert, no apparent distress Head: Normocephalic, atraumatic ENT: PERRL, EOMI, no pharyngeal exudate, mucous membranes slightly dry Chest: Clear to auscultation, on room air, no adventitious breath sounds Cardiac: Regular rate and rhythm, no murmur, no JVD, normal peripheral pulses, good capillary refill Abdominal: NABS x 4 quadrants, soft, nondistended, nontender to palpation, no rebound or guarding Extremities: Normal inspection, no peripheral edema or erythema, calfs nontender to palpation Psych: Normal mood and affect Neuro: AAO x 3, strength intact bilaterally and rated 5/5, no motor deficits, speech is clear, no peripheral sensory deficits Results & Data Results & Data ([facility]) Vital Signs (Past 12 Hours) Vital Signs Temp Pulse Pulse Resp BP BP Pulse Ox 02/23/21 14:41 79 18 169/76 H 92 02/23/21 13:46 72 22 146/68 H 93 02/23/21 12:38 97 02/23/21 12:31 74 20 142/85 H 99 02/23/21 11:44 37.6 C H 74 20 143/69 H 92 Diagnostic Findings Chest X-Ray 02/23/21 11:53 XR chest 1V portable CLINICAL HISTORY: SEPSIS COMPARISON STUDY: Chest radiograph November 16, 2017. FINDINGS: Lung volumes are normal. Lungs are clear. There is no pneumothorax or pleural effusion. Cardiac size is normal. Mediastinal contours are normal. There is no evidence for pulmonary edema. Calcified right midlung nodule is present. This is unchanged. Suspected calcified right hilar and subcarinal lymph nodes are unchanged and suggest previous granulomatous process. IMPRESSION: No acute cardiopulmonary findings. ACT 112: Negative or not required by law. Electronically signed by: Steffen Calderon M.D. 02/23/2021 1:38 PM Abdomen/Pelvis CT 02/23/21 13:31 CT SCAN OF THE ABDOMEN AND PELVIS WITHOUT CONTRAST CLINICAL HISTORY: fever hematuria COMPARISON STUDY: No previous studies for comparison. TECHNIQUE: CT scan of the abdomen and pelvis was performed from the lung bases to the proximal femurs. Images are reviewed in the axial, sagittal, and coronal planes. IV contrast was not administered for this examination. A dose lowering technique was utilized adhering to the principles of ALARA. CT DOSE: 1115.65 mGy.cm FINDINGS: Lower chest: Mild atelectasis at the dependent portions of bilateral lower lobes. Liver: The unenhanced liver is normal in size, contour, and attenuation. There is no intrahepatic biliary ductal dilatation. Gallbladder: Unremarkable. Spleen: Spleen is prominent. Multiple calcification within splenic parenchyma are seen and could represent sequela from remote granulomatous process. Pancreas: Unremarkable. Adrenal glands: Unremarkable. Kidneys: No hydronephrosis or nephrolithiasis seen. Extrarenal pelvis is seen on the right. Bowel: Small hiatal hernia is seen. Duodenal diverticulum was demonstrated. Bowel loops are nondilated. Appendix is not well seen. Diverticulosis of sigmoid colon is seen. Questionable focal area of slightly increased fat stranding surrounding distal sigmoid colon within inferior portion of the right pelvis is seen and might represent developing diverticulitis (5/377) Peritoneum: There is no intraperitoneal free air or abdominal ascites. Vasculature: The abdominal aorta is tortuous with scattered calcifications of its wall. No aortic dilatation is seen. Adenopathy: None. Pelvic viscera: Normal appearance of the bladder which is fluid-filled. Uterus is surgically absent. Pelvic ring is demonstrated. Skeletal structures: Multilevel degenerative changes of the spine. IMPRESSION: 1. No hydronephrosis or nephrolithiasis. 2. Fluid-filled urinary bladder. Pelvic ring. 3. Possible developing diverticulitis within inferior right aspect of the pelvis as detailed above. 4. Small hiatal hernia. 5. Other findings as above. ACT 112: Negative or not required by law. The above report was generated using voice recognition software. It may contain grammatical, syntax or spelling errors. Electronically signed by: Deidre Hu DO 02/23/2021 2:[address] 02/23/21 13:31 CT head/brain wo con CLINICAL HISTORY: dizziness COMPARISON STUDY: No previous studies for comparison. TECHNIQUE: Axial CT of the brain is performed from the vertex to the skull base. IV contrast was not administered for this examination. A dose lowering technique was utilized adhering to the principles of ALARA. CT DOSE: FINDINGS: No acute intracranial hemorrhage, no midline shift or space occupying lesions seen. Evaluation is slightly limited due to motion and beam hardening artifact. Mild atrophic changes of brain parenchyma are seen and associated with ex vacuo dilatation of ventricles. No significant white matter changes are seen. No acute depressed skull fractures seen. Visualized paranasal sinuses are patent and well-aerated. Partial opacification of inferior right mastoid air cells might represent mastoiditis. IMPRESSION: No acute intracranial hemorrhage, no midline shift or space occupying lesions. Possible mastoiditis on the right. Please correlate these findings with clinical presentation and prior history of mastoiditis. Atrophic changes of brain parenchyma associated with the axial, dilatation of ventricles. ACT 112: Negative or not required by law. The above report was generated using voice recognition software. It may contain grammatical, syntax or spelling errors. Electronically signed by: Deidre Hu DO 02/23/2021 2:15 PM ECG Additional Comments: 23-FEB-2021 12:28:56 [facility]-EDSTAT ROUTINE RETRIEVAL Poor data quality, interpretation may be adversely affected Sinus rhythm with Premature supraventricular complexes Otherwise normal ECG When compared with ECG of 16-NOV-2017 09:57, Premature supraventricular complexes are now Present Questionable change in QRS axis ST no longer elevated in Inferior leads 25mm/s 10mm/mV 150Hz 9.0.9 12SL 241 DEDRICK: 10 Unconfirmed Vent. rate 76 BPM WA interval 208 ms QRS duration 92 ms QT/QTc 396/445 ms Code Status & VTE Plan Code Status Full code Supervising Physician Co-Signing Physician Notes I have seen and examined the patient and have discussed the case with the provider above. I agree with the assessment and plan as stated. The patient is an 85-year-old female with generalized malaise for several days including fever and significant issues related to pessary placement. She is shifting in bed and extremely uncomfortable, unable to find a smooth resting spot. In addition, she suffers from vestibular migraines and intermittent vertigo. She reports doing well with meclizine which is being trialed today. Review of systems also reveals persistent postnasal drip and sinus issues, although the patient reports taking no medications for these. She denies any abdominal pain other than discomfort from her pessary. On exam vital signs are stable and she is oxygenating well on room air. Although she is in no acute distress, she is unable to sit up for more than 30 seconds at the bedside, preferring to lie down in order to not feel so dizzy. Denies, fevers and chills. On exam there are no olga neurologic deficits although mild tremors are noted in her legs bilaterally. Patellar reflexes are 2+ bilaterally, sensation intact throughout, strength intact throughout, CN II through XII intact grossly, she is oriented answering questions appropriately. Cardiopulmonary exam is normal. Abdomen is soft, nondistended and nontender with some discomfort to palpation in the suprapubic region. Agree with current antibiotics empirically with narrowing of spectrum or dc altogether once definitive culture return and clinical picture improves. OB has been consulted for pessary removal and Neuro has been consulted for assistance with vertigo. DO Joaquín
[2021-02-23] MEDS ORDERED: VANCOMYCIN CONSULT ACTIVE PRN (15:03)
[2021-02-23] MEDS ORDERED: VANCOMYCIN HCL 1,500 MG in SODIUM CHLORIDE 0.9% 500 ML IV ONE (15:03)
[2021-02-23] MEDS ORDERED: metroNIDAZOLE 500 MG/100 ML BAG IV STA (15:03)
[2021-02-23] MEDS ORDERED: cefTRIAXone SODIUM 1,000 MG/50 ML BAG IV STA (15:03)
--- NOTE | 2021-02-23 15:26 | Emergency Department Note ---
History of Present Illness General Chief complaint: Illness Stated complaint: DIZZY,WEAK,NAUSEOUS Time Seen by Provider: 02/23/21 11:51 History of Present Illness Provider complaint: Dizziness nausea sinus pressure Onset (ago): day(s) 4 Location: face Maximum Pain Intensity: 8 Current Pain Intensity: 8 Quality: + aching Relieved By: + none Exacerbated By: + none Associated symptoms: + nausea/vomiting; no chest pain, no cough, no fever/ch ills, no headaches, no seizure, no shortness of breath, no syncope and no weakne ss 85-year-old female presents emergency department for dizziness, nausea, and sinus pressure. Patient reports her symptoms are gone for last 4 days. Patient states she was referred over here by [facility] urgent care. She states she was concerned she might have COVID-19. Patient states she was vaccinated as COVID- 19 in November. She reports she had a fever at the urgent care. She reports no vomiting. She reports she feels dizzy like the room is spinning. She does report nausea. She reports body aches and weakness. No chest pain difficulty breathing or abdominal pain. Home Medications Medication Instructions Recorded Confirmed Type calcium carbonate-vitamin D3 1 cap PO QAM #0 11/16/17 02/23/21 History [Calcium 600 with Vitamin D3] docusate sodium 100 mg PO BID 7 Days #14 cap 11/16/17 02/23/21 History escitalopram oxalate 10 mg PO HS #0 tab 11/16/17 02/23/21 History fluticasone propionate [Flonase 2 spray INTRANASAL DAILY PRN #0 11/16/17 02/23/21 History Allergy Relief] lorazepam 0.5 mg PO TID PRN #0 tab 11/16/17 02/23/21 History meclizine 25 mg PO TID PRN 10 Days #30 tab 11/16/17 02/23/21 History mirabegron 25 mg PO HS #0 tab 11/16/17 02/23/21 History nystatin 1 applic TOPICAL DAILY PRN #0 11/16/17 02/23/21 History omeprazole 40 mg PO QAM #0 cap 11/16/17 02/23/21 History acetaminophen [Tylenol Arthritis] 1,300 mg PO Q12H PRN 02/23/21 02/23/21 History alendronate 70 mg PO WK 02/23/21 02/23/21 History hydrochlorothiazide 12.5 mg PO QAM 02/23/21 02/23/21 History lisinopril 10 mg PO QAM 02/23/21 02/23/21 History trazodone 100 - 150 mg PO HS 02/23/21 02/23/21 History Allergies Allergy/AdvReac Type Severity Reaction Status Date / Time codeine Allergy Mild ITCHY Verified 02/23/21 14:26 aspirin AdvReac Mild ADBOMINAL Verified 02/23/21 14:26 PAIN morphine AdvReac Mild DISORIENTED Verified 02/23/21 14:26 -"GOONY" Past Med/Surg History Medical History (Updated 02/23/21 @ 15:26 by Lowell Garcia) GERD (gastroesophageal reflux disease) HTN (hypertension) No pertinent family history Osteoarthritis Osteoporosis Surgical History (Updated 02/23/21 @ 15:22 by Lowell Garcia) No pertinent past surgical history Social History Smoking Status: Former smoker Feels Safe at Home: Yes Review of Systems A total of 10 systems reviewed and were otherwise negative Physical Exam Vital Signs Vital Signs - 24 hr 02/23/21 11:44 02/23/21 12:31 02/23/21 12:38 Temperature 37.6 C H Temperature Source Temporal Artery Scan Pulse Rate 74 Pulse Rate [Finger] 74 Respiratory Rate 20 20 Respiratory Effort / Characteristics Non-Labored Spontaneous Respiratory Depth Normal Respiratory Pattern Regular Blood Pressure 143/69 H Blood Pressure [Left Arm] 142/85 H Blood Pressure Mean 93 Blood Pressure Mean [Left Arm] 104 Blood Pressure Position Sitting Pulse Oximetry 92 99 97 Oxygen Delivery Method Room Air Room Air Room Air Sepsis Recent Fever Within 48 Hours Yes Sepsis New/Unexplained Change in Mental Status No Sepsis Action Taken by Nursing No Action Required 02/23/21 13:46 02/23/21 14:41 Temperature Temperature Source Pulse Rate Pulse Rate [Finger] 72 79 Respiratory Rate 22 18 Respiratory Effort / Characteristics Respiratory Depth Respiratory Pattern Blood Pressure Blood Pressure [Left Arm] 146/68 H 169/76 H Blood Pressure Mean Blood Pressure Mean [Left Arm] 94 107 Blood Pressure Position Pulse Oximetry 93 92 Oxygen Delivery Method Room Air Room Air Sepsis Recent Fever Within 48 Hours Sepsis New/Unexplained Change in Mental Status Sepsis Action Taken by Nursing Physical Exam GENERAL: She is oriented to person, place, and time. She appears well-developed and well-nourished. She does not appear distressed. HENT: Exam performed. -Head: Normocephalic and atraumatic. Pain on palpation of left maxillary sinus. -Right Ear: External ear normal. No mastoid tenderness. Tympanic membrane irvin and pearly. -Left Ear: External ear normal. No mastoid tenderness. Tympanic membrane irvin and pearly. -Mouth/Throat: The oropharynx is clear and moist. No trismus in the jaw. No dental abscesses or uvula swelling. No oropharyngeal exudate or tonsillar abscesses. EYES: Conjunctivae and EOM are normal. Pupils are equal, round, and reactive to light. Right eye exhibits no discharge. Left eye exhibits no discharge. No scleral icterus. NECK: Normal range of motion. Neck supple. No JVD present. No spinous process tenderness present. No carotid bruit present. No rigidity. No tracheal deviation and normal range of motion present. No Brudzinski's sign and no Kernig's sign noted. CV: Normal rate, regular rhythm, normal heart sounds and intact distal pulses. There is no peripheral edema. Palpable radial pulses bue. PULM/CHEST: Effort normal and breath sounds normal. No respiratory distress. No stridor. She has no wheezes. She has no rales. -Chest Wall: She exhibits no tenderness. ABD: The abdomen is soft. Bowel sounds are normal. She has no distension. No mass is present. There is no tenderness. There is no rebound, no guarding, no Verde's sign and no tenderness at McBurney's point. Rovsig negative MUSC/SKEL: Normal range of motion. There is no peripheral edema, tenderness or deformity. LYMPH: No cervical adenopathy. NEURO: She is alert and oriented to person, place, and time. She has normal strength. No cranial nerve deficit or sensory deficit. Coordination and gait normal. GCS eye subscore is 4. GCS verbal subscore is 5. GCS motor subscore is 6. Cerebellar tests wnl. SKIN: Skin is warm and dry. She is not diaphoretic. PSYCH: She has a normal mood and affect. Behavior is normal. Judgment and thought content normal. Course Course 1151: The patient was evaluated in room C10. A complete history and physical exam was performed Cardiac monitoring: An order was placed for continuous cardiac monitoring. The monitor shows a rate of 80 with sinus rhythm 1524: Vital signs stable. Labs within normal limits with the exception of a very minimally elevated procalcitonin of 0.58. CT scan calls for possible right-sided mastoiditis and possible developing diverticulitis. On exam there is no mastoid effusion, redness, or tenderness bilaterally. I did discuss the case with Dr. Joaquín Amador hospitalist and given the CT reads and the mild elevation of procalcitonin I thought would be wray to watch the patient in the hospital overnight and start IV antibiotics. Rocephin Flagyl and Vanco have been added. Patient is in agreement to stay in the hospital overnight. Administered Medications Discontinued Medications Sodium Chloride (Nss 1000ml) 1,000 mls @ 999 mls/hr IV .Q1H1M RUTHIE Stop: 02/23/21 13:14 Last Infusion: 02/23/21 14:15 Dose: 0 mls/hr Documented by: [id number] Admin: 02/23/21 12:34 Dose: 999 mls/hr Documented by: [id number] Meclizine HCl (Meclizine Hcl 25 Mg Tab) 25 mg PO NOW STA Stop: 02/23/21 12:14 Last Admin: 02/23/21 12:34 Dose: 25 mg Documented by: [id number] Ondansetron HCl (Ondansetron Inj 2 Mg/Ml 2 Ml Vial) 4 mg IV NOW STA Stop: 02/23/21 12:14 Last Admin: 02/23/21 12:34 Dose: 4 mg Documented by: [id number] Medical Decision Making Laboratory Data Result diagrams: 02/23/21 11:58 02/23/21 11:58 Lab Results 02/23/21 02/23/21 02/23/21 Range/Units 11:58 11:58 11:58 WBC 6.01 (4.8-10.8) K/uL RBC 4.57 (4.2-5.4) M/uL Hgb 14.0 (12.0-16.0) g/dL Hct 41.7 (37-47) % MCV 91.2 (80-100) fL MCH 30.6 (25-34) pg MCHC 33.6 (32-36) g/dL RDW Std Deviation 48.1 H (36.4-46.3) fL RDW Coeff of Jackie 14.2 (11.5-14.5) % Plt Count 130 (130-400) K/uL MPV 10.4 (7.4-10.4) fL Immature Gran % (Auto) 0.7 % Neut % (Auto) 86.9 % Lymph % (Auto) 8.2 % [place] % (Auto) 4.0 % Eos % (Auto) 0.0 % Baso % (Auto) 0.2 % Neut # (Auto) 5.23 (1.4-6.5) K/uL Lymph # (Auto) 0.49 L (1.2-3.4) K/uL [place] # (Auto) 0.24 (0.11-0.59) K/uL Eos # (Auto) 0.00 (0-0.5) K/uL Baso # (Auto) 0.01 (0-0.2) K/uL Immature Gran # (Auto) 0.04 H (0.00-0.02) K/uL PT (9.0-12.0) Seconds INR (0.9-1.1) APTT (21.0-31.0) Seconds PTT Ratio Sodium 133 L (136-145) mmol/L Potassium 3.7 (3.5-5.1) mmol/L Chloride 98 (98-107) mmol/L Carbon Dioxide 27 (21-32) mmol/L Anion Gap 8.0 (3-11) BUN 23 H (7-18) mg/dl Creatinine 0.90 (0.6-1.2) mg/dl Est Cr Clr Drug Dosing 48.8 ml/min Est GFR ( Amer) 68.5 ml/min Est GFR (Non-Af Amer) 59.1 ml/min BUN/Creatinine Ratio 25.9 H (10-20) Glucose 123 H (70-99) mg/dl Lactate (0.4-2.0) mmol/L Calcium 8.2 L (8.5-10.1) mg/dl Magnesium 2.3 (1.8-2.4) mg/dl Total Bilirubin 1.0 (0.2-1) mg/dl AST 67 H (15-37) U/L ALT 51 (12-78) U/L Alkaline Phosphatase 68 (45-117) U/L Troponin I < 0.015 (0-0.045) ng/ml Total Protein 6.9 (6.4-8.2) gm/dl Albumin 3.3 L (3.4-5.0) gm/dl Globulin 3.6 (2.5-4.0) gm/dl Albumin/Globulin Ratio 0.9 (0.9-2) Procalcitonin 0.58 H (0-0.5) ng/ml Urine Color Urine Appearance (Clear) Urine pH (4.5-7.5) Ur Specific [place] (1.000-1.030) Urine Protein (Negative) Urine Glucose (UA) (Negative) Urine Ketones (Negative) Urine Blood (Negative) Urine Nitrite (Negative) Urine Bilirubin (Negative) Urine Urobilinogen (Negative) Ur Leukocyte Esterase (Negative) Urine WBC (Auto) (0-5) /hpf Urine RBC (Auto) (0-4) /hpf U Hyaline Cast (Auto) (0-5) /lpf U Epithel Cells (Auto) (0-5) /lpf Urine Bacteria (Auto) (Negative) Ur Renal Epithelial Cell (0-5) /lpf Amorphous Sediment (None Prsent) Urine Mucus (None Prsent) Urine Yeast COVID-19 Eval Order SARS-CoV-2 (PCR) (Negative) Influ A Molecular Assay (Negative) Influ B Molecular Assay (Negative) 02/23/21 02/23/21 02/23/21 Range/Units 12:35 12:35 12:35 WBC (4.8-10.8) K/uL RBC (4.2-5.4) M/uL Hgb (12.0-16.0) g/dL Hct (37-47) % MCV (80-100) fL MCH (25-34) pg MCHC (32-36) g/dL RDW Std Deviation (36.4-46.3) fL RDW Coeff of Jackie (11.5-14.5) % Plt Count (130-400) K/uL MPV (7.4-10.4) fL Immature Gran % (Auto) % Neut % (Auto) % Lymph % (Auto) % [place] % (Auto) % Eos % (Auto) % Baso % (Auto) % Neut # (Auto) (1.4-6.5) K/uL Lymph # (Auto) (1.2-3.4) K/uL [place] # (Auto) (0.11-0.59) K/uL Eos # (Auto) (0-0.5) K/uL Baso # (Auto) (0-0.2) K/uL Immature Gran # (Auto) (0.00-0.02) K/uL PT (9.0-12.0) Seconds INR (0.9-1.1) APTT (21.0-31.0) Seconds PTT Ratio Sodium (136-145) mmol/L Potassium (3.5-5.1) mmol/L Chloride (98-107) mmol/L Carbon Dioxide (21-32) mmol/L Anion Gap (3-11) BUN (7-18) mg/dl Creatinine (0.6-1.2) mg/dl Est Cr Clr Drug Dosing ml/min Est GFR ( Amer) ml/min Est GFR (Non-Af Amer) ml/min BUN/Creatinine Ratio (10-20) Glucose (70-99) mg/dl Lactate (0.4-2.0) mmol/L Calcium (8.5-10.1) mg/dl Magnesium (1.8-2.4) mg/dl Total Bilirubin (0.2-1) mg/dl AST (15-37) U/L ALT (12-78) U/L Alkaline Phosphatase (45-117) U/L Troponin I (0-0.045) ng/ml Total Protein (6.4-8.2) gm/dl Albumin (3.4-5.0) gm/dl Globulin (2.5-4.0) gm/dl Albumin/Globulin Ratio (0.9-2) Procalcitonin (0-0.5) ng/ml Urine Color Dark Yellow Urine Appearance Cloudy A (Clear) Urine pH 5.5 (4.5-7.5) Ur Specific [place] 1.030 (1.000-1.030) Urine Protein 2+ H (Negative) Urine Glucose (UA) Negative (Negative) Urine Ketones 1+ H (Negative) Urine Blood 2+ H (Negative) Urine Nitrite Negative (Negative) Urine Bilirubin 1+ H (Negative) Urine Urobilinogen Negative (Negative) Ur Leukocyte Esterase 2+ H (Negative) Urine WBC (Auto) >30 H (0-5) /hpf Urine RBC (Auto) 5-10 H (0-4) /hpf U Hyaline Cast (Auto) 0 (0-5) /lpf U Epithel Cells (Auto) >30 H (0-5) /lpf Urine Bacteria (Auto) 1+ H (Negative) Ur Renal Epithelial Cell 5-10 H (0-5) /lpf Amorphous Sediment Present A (None Prsent) Urine Mucus Present A (None Prsent) Urine Yeast Not Reportable COVID-19 Eval Order Covid19 at [facility] SARS-CoV-2 (PCR) (Negative) Influ A Molecular Assay Negative (Negative) Influ B Molecular Assay Negative (Negative) 02/23/21 02/23/21 02/23/21 Range/Units 12:35 13:22 13:22 WBC (4.8-10.8) K/uL RBC (4.2-5.4) M/uL Hgb (12.0-16.0) g/dL Hct (37-47) % MCV (80-100) fL MCH (25-34) pg MCHC (32-36) g/dL RDW Std Deviation (36.4-46.3) fL RDW Coeff of Jackie (11.5-14.5) % Plt Count (130-400) K/uL MPV (7.4-10.4) fL Immature Gran % (Auto) % Neut % (Auto) % Lymph % (Auto) % [place] % (Auto) % Eos % (Auto) % Baso % (Auto) % Neut # (Auto) (1.4-6.5) K/uL Lymph # (Auto) (1.2-3.4) K/uL [place] # (Auto) (0.11-0.59) K/uL Eos # (Auto) (0-0.5) K/uL Baso # (Auto) (0-0.2) K/uL Immature Gran # (Auto) (0.00-0.02) K/uL PT 10.2 (9.0-12.0) Seconds INR 1.0 (0.9-1.1) APTT 28.2 (21.0-31.0) Seconds PTT Ratio 1.1 Sodium (136-145) mmol/L Potassium (3.5-5.1) mmol/L Chloride (98-107) mmol/L Carbon Dioxide (21-32) mmol/L Anion Gap (3-11) BUN (7-18) mg/dl Creatinine (0.6-1.2) mg/dl Est Cr Clr Drug Dosing ml/min Est GFR ( Amer) ml/min Est GFR (Non-Af Amer) ml/min BUN/Creatinine Ratio (10-20) Glucose (70-99) mg/dl Lactate 1.1 (0.4-2.0) mmol/L Calcium (8.5-10.1) mg/dl Magnesium (1.8-2.4) mg/dl Total Bilirubin (0.2-1) mg/dl AST (15-37) U/L ALT (12-78) U/L Alkaline Phosphatase (45-117) U/L Troponin I (0-0.045) ng/ml Total Protein (6.4-8.2) gm/dl Albumin (3.4-5.0) gm/dl Globulin (2.5-4.0) gm/dl Albumin/Globulin Ratio (0.9-2) Procalcitonin (0-0.5) ng/ml Urine Color Urine Appearance (Clear) Urine pH (4.5-7.5) Ur Specific [place] (1.000-1.030) Urine Protein (Negative) Urine Glucose (UA) (Negative) Urine Ketones (Negative) Urine Blood (Negative) Urine Nitrite (Negative) Urine Bilirubin (Negative) Urine Urobilinogen (Negative) Ur Leukocyte Esterase (Negative) Urine WBC (Auto) (0-5) /hpf Urine RBC (Auto) (0-4) /hpf U Hyaline Cast (Auto) (0-5) /lpf U Epithel Cells (Auto) (0-5) /lpf Urine Bacteria (Auto) (Negative) Ur Renal Epithelial Cell (0-5) /lpf Amorphous Sediment (None Prsent) Urine Mucus (None Prsent) Urine Yeast COVID-19 Eval Order SARS-CoV-2 (PCR) NEGATIVE (Negative) Influ A Molecular Assay (Negative) Influ B Molecular Assay (Negative) Imaging Data Radiologist's Impression: Chest X-Ray 02/23/21 11:53 XR chest 1V portable CLINICAL HISTORY: SEPSIS COMPARISON STUDY: Chest radiograph November 16, 2017. FINDINGS: Lung volumes are normal. Lungs are clear. There is no pneumothorax or pleural effusion. Cardiac size is normal. Mediastinal contours are normal. There is no evidence for pulmonary edema. Calcified right midlung nodule is present. This is unchanged. Suspected calcified right hilar and subcarinal lymph nodes are unchanged and suggest previous granulomatous process. IMPRESSION: No acute cardiopulmonary findings. ACT 112: Negative or not required by law. Electronically signed by: Steffen Calderon M.D. 02/23/2021 1:38 PM Abdomen/Pelvis CT 02/23/21 13:31 CT SCAN OF THE ABDOMEN AND PELVIS WITHOUT CONTRAST CLINICAL HISTORY: fever hematuria COMPARISON STUDY: No previous studies for comparison. TECHNIQUE: CT scan of the abdomen and pelvis was performed from the lung bases to the proximal femurs. Images are reviewed in the axial, sagittal, and coronal planes. IV contrast was not administered for this examination. A dose lowering technique was utilized adhering to the principles of ALARA. CT DOSE: 1115.65 mGy.cm FINDINGS: Lower chest: Mild atelectasis at the dependent portions of bilateral lower lobes. Liver: The unenhanced liver is normal in size, contour, and attenuation. There is no intrahepatic biliary ductal dilatation. Gallbladder: Unremarkable. Spleen: Spleen is prominent. Multiple calcification within splenic parenchyma are seen and could represent sequela from remote granulomatous process. Pancreas: Unremarkable. Adrenal glands: Unremarkable. Kidneys: No hydronephrosis or nephrolithiasis seen. Extrarenal pelvis is seen on the right. Bowel: Small hiatal hernia is seen. Duodenal diverticulum was demonstrated. Bowel loops are nondilated. Appendix is not well seen. Diverticulosis of sigmoid colon is seen. Questionable focal area of slightly increased fat stranding surrounding distal sigmoid colon within inferior portion of the right pelvis is seen and might represent developing diverticulitis (5/377) Peritoneum: There is no intraperitoneal free air or abdominal ascites. Vasculature: The abdominal aorta is tortuous with scattered calcifications of its wall. No aortic dilatation is seen. Adenopathy: None. Pelvic viscera: Normal appearance of the bladder which is fluid-filled. Uterus is surgically absent. Pelvic ring is demonstrated. Skeletal structures: Multilevel degenerative changes of the spine. IMPRESSION: 1. No hydronephrosis or nephrolithiasis. 2. Fluid-filled urinary bladder. Pelvic ring. 3. Possible developing diverticulitis within inferior right aspect of the pelvis as detailed above. 4. Small hiatal hernia. 5. Other findings as above. ACT 112: Negative or not required by law. The above report was generated using voice recognition software. It may contain grammatical, syntax or spelling errors. Electronically signed by: Deidre Hu DO 02/23/2021 2:[address] 02/23/21 13:31 CT head/brain wo con CLINICAL HISTORY: dizziness COMPARISON STUDY: No previous studies for comparison. TECHNIQUE: Axial CT of the brain is performed from the vertex to the skull base. IV contrast was not administered for this examination. A dose lowering te chnique was utilized adhering to the principles of ALARA. CT DOSE: FINDINGS: No acute intracranial hemorrhage, no midline shift or space occupying lesions seen. Evaluation is slightly limited due to motion and beam hardening artifact. Mild atrophic changes of brain parenchyma are seen and associated with ex vacuo dilatation of ventricles. No significant white matter changes are seen. No acute depressed skull fractures seen. Visualized paranasal sinuses are patent and well-aerated. Partial opacification of inferior right mastoid air cells might represent mastoiditis. IMPRESSION: No acute intracranial hemorrhage, no midline shift or space occupying lesions. Possible mastoiditis on the right. Please correlate these findings with clinical presentation and prior history of mastoiditis. Atrophic changes of brain parenchyma associated with the axial, dilatation of ventricles. ACT 112: Negative or not required by law. The above report was generated using voice recognition software. It may contain grammatical, syntax or spelling errors. Electronically signed by: Deidre Hu DO 02/23/2021 2:15 PM ECG Data Indication: + other (dizziness) Rate (beats per minute): 76 Rhythm: + normal sinus ECG Intervals/blocks: + First degree AV block and + Normal QRS ECG ST segments: + Normal ST segments MDM Narrative 1151: The patient was evaluated in room C10. A complete history and physical exam was performed Cardiac monitoring: An order was placed for continuous cardiac monitoring. The monitor shows a rate of 80 with sinus rhythm 1524: Vital signs stable. Labs within normal limits with the exception of a very minimally elevated procalcitonin of 0.58. CT scan calls for possible right-sided mastoiditis and possible developing diverticulitis. On exam there is no mastoid effusion, redness, or tenderness bilaterally. I did discuss the case with Dr. Joaquín Amador hospitalist and given the CT reads and the mild elevation of procalcitonin I thought would be wray to watch the patient in the hospital overnight and start IV antibiotics. Rocephin Flagyl and Vanco have been added. Patient is in agreement to stay in the hospital overnight. Impression & Plan Diverticulitis, Dizziness Discharge Plan Visit Data Chief Complaint: Illness Stated Complaint: DIZZY,WEAK,NAUSEOUS ED Provider: Lowell Garcia Discharge Problem: Diverticulitis, Dizziness Patient Disposition: Being Evaluated by Hospitalist Forms Stand Alone Forms: My [facility] Prescriptions Prescriptions: No Action docusate sodium 100 mg Capsule 100 mg PO BID 7 Days Qty: 14 RF: 0 nystatin 100,000 unit/gram Powder 1 applic TOPICAL DAILY PRN (Reason: Skin Irritation) Qty: 0 RF: 0 escitalopram oxalate 10 mg Tablet 10 mg PO HS Qty: 0 RF: 0 omeprazole 20 mg Tablet,Delayed Release (Dr/Ec) 40 mg PO QAM Qty: 0 RF: 0 calcium carbonate-vitamin D3 [Calcium 600 with Vitamin D3] 600 mg(1,500mg) - 500 unit Capsule 1 cap PO QAM Qty: 0 RF: 0 lorazepam 0.5 mg Tablet 0.5 mg PO TID PRN (Reason: Anxiety) Qty: 0 RF: 0 meclizine 25 mg Tablet 25 mg PO TID PRN (Reason: Dizziness) 10 Days Qty: 30 RF: 0 mirabegron 25 mg Tablet Extended Release 24 Hr 25 mg PO HS Qty: 0 RF: 0 fluticasone propionate [Flonase Allergy Relief] 50 mcg/actuation [place],Suspension 2 spray INTRANASAL DAILY PRN (Reason: Allergy Symptoms) Qty: 0 RF: 0 alendronate 70 mg tablet 70 mg PO WK RF: 0 acetaminophen [Tylenol Arthritis] 650 mg Tablet Extended Release 1,300 mg PO Q12H PRN (Reason: Pain) RF: 0 trazodone 100 mg tablet 100 - 150 mg PO HS RF: 0 lisinopril 10 mg tablet 10 mg PO QAM RF: 0 hydrochlorothiazide 12.5 mg tablet 12.5 mg PO QAM RF: 0 Referrals Referrals: Merritt Mac MD [Primary Care Provider] -
[2021-02-23] MEDS ORDERED: ONDANSETRON INJ 2 MG/ML 2 ML VIAL IV PRN (17:36)
[2021-02-23] MEDS ORDERED: MECLIZINE HCL 25 MG TAB PO PRN (17:51)
--- NOTE | 2021-02-23 18:59 | Pharmacy Report ---
Pharmacy Abx Dose Short Note - Date of Service February 23, 2021 - Assessment & Plan Assessment 85 year old F presented to the ED with complaints of N/V, weakness, fatigue, Tmax 100.7. Past medical history includes htn, GERD, hiatal hernia, osteoarthritis, osteoporosis and anxiety. Patient with concerns of COVID- however testing was negative. No leukocytosis. Procalcitonin slightly elevated 0.58. CT of head with possible mastoiditis and CT of abdomen with possible developing diverticulitis. UA also with pyuria although sample contaminated and patient without urinary complaints. Broad spectrum antibiotics as currently multiple possibly infectious sources in differential. Vancomycin,ceftriaxone and flagyl started empirically. Blood cultures/urine culture pending. SCr appears to be at baseline. Plan Vancomycin * 1500 mg loading dose in the ED * Begin 1250 mg every 18H * Goal trough level 15-20 mcg/mL * Will order trough if vancomycin continues >48 hours. Pharmacy will continue to follow and will adjust dose/frequency as necessary. Thank you.
[2021-02-23] MEDS: ESCITALOPRAM OXALATE 10 MG TAB PO SCH (20:52)
[2021-02-23] MEDS: MIRABEGRON ER 25 MG TAB PO SCH (20:52)
[2021-02-23] MEDS: LORazepam 0.5 MG TAB PO PRN (21:20)
[2021-02-23] MEDS: metroNIDAZOLE 500 MG/100 ML BAG IV SCH (22:33)
[2021-02-24] MEDS: ACETAMINOPHEN 325 MG TAB PO PRN (03:54)
[2021-02-24 07:28] LABS: Hematocrit (blood only) 38.9 % (37-47); Hemoglobin 12.9 g/dL (12.0-16.0); Mean Corpuscular Hemoglobin 29.9 pg (25-34); Mean Corpuscular Hgb Conc 33.2 g/dL (32-36); RDW Coefficient of Variation 14.2 % (11.5-14.5); RDW Standard Deviation 47.3 fL (36.4-46.3); Red Blood Count 4.32 M/uL (4.2-5.4)
[2021-02-24 07:54] LABS: Mean Platelet Volume 10.7 fL (7.4-10.4); Platelet Count 81 K/uL (130-400)
[2021-02-24 08:00] LABS: Anaplasmosis Smear(Rpt to DOH) Pos for Anaplasma
[2021-02-24] MEDS ORDERED: VANCOMYCIN HCL 1,250 MG in SODIUM CHLORIDE 0.9% 250 ML IV SCH (08:00)
[2021-02-24] MEDS: metroNIDAZOLE 500 MG/100 ML BAG IV SCH (08:46)
[2021-02-24] MEDS: PANTOprazole 40 MG TAB PO SCH (08:48)
[2021-02-24] MEDS: lisinopril 10 MG TAB PO SCH (08:48)
[2021-02-24] MEDS: DOXYCYCLINE HYCLATE 100 MG in DEXTROSE 5% 100 ML IV SCH ×2 (09:09→21:48)
--- NOTE | 2021-02-24 09:11 | Neurology Consultation ---
Date of Consultation February 24, 2021 Assessment & Plan (1) Vertigo: 1. vertigo does not seem to be a factor at this point, was likely brought on by the infection 2. doxycycline IV currently - primary team for further management 3. low platlets - continue to monitor 4. no MRI needed at this time 5. PT/OT for discharge needs. she can follow up with neurology as needed. Present on Admission?: Yes (2) UTI (urinary tract infection): 1. 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 Garcia one time for a voice tremor that no longer is an issue We were thinking of doing an MRI scan but at this point in light of her response to medications and her asymptomatic status and normal exam I would have a hard time justifying it I certainly would not do want to follow-up on the mastoid issue which has been present on imaging studies for at least 13 years or longer Joce Mabry MD History of Present Illness Reason for Consultation: vertigo vestibular migraine history Requesting Physician: Michela Lang MD Attending Physician: Michela Abdalla MD History of Present Illness Aleksandra is an 85 year old female with PMH of HTN, GERD with small hiatal hernia, OA, osteoporosis, anxiety who presented to the [facility] ED 02/23/2021 for not feeling well x 4 days. She was seen at urgent care clinic earlier today for nausea/vomiting started night prior to presentation, weakness, fatigue and malaise which started the morning of admission and tmax of 100.7. She had an episode of vertigo this morning and took meclizine which seemed to improve her dizziness. She has had ongoing issues with dizziness for many months and uses meclizine which improves her symptoms. She was seen by neurology 11/24/2013 for tremor. She also had some blurred vision a faint headache with no room spinning. She di have some balance issues also. She received the COVID-19 vaccine in November. She thinks she is getting better. 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 they also treated her for a UTI which her daughter noted she has a pessery and infections are common. she knows she has the reading of the mastoiditis which was first seen back several years ago and is a chronic findings. denies CP, SOB, abdominal pain, no current N, V. Allergies Allergy/AdvReac Type Severity Reaction Status Date / Time codeine Allergy Mild ITCHY Verified 02/23/21 14:26 aspirin AdvReac Mild ADBOMINAL Verified 02/23/21 14:26 PAIN morphine AdvReac Mild DISORIENTED Verified 02/23/21 14:26 -"GOONY" Home Medications Medication Instructions Recorded Confirmed Type calcium carbonate-vitamin D3 1 cap PO QAM #0 11/16/17 02/23/21 History [Calcium 600 with Vitamin D3] docusate sodium 100 mg PO BID 7 Days #14 cap 11/16/17 02/23/21 History escitalopram oxalate 10 mg PO HS #0 tab 11/16/17 02/23/21 History fluticasone propionate [Flonase 2 spray INTRANASAL DAILY PRN #0 11/16/17 02/23/21 History Allergy Relief] lorazepam 0.5 mg PO TID PRN #0 tab 11/16/17 02/23/21 History meclizine 25 mg PO TID PRN 10 Days #30 tab 11/16/17 02/23/21 History mirabegron 25 mg PO HS #0 tab 11/16/17 02/23/21 History nystatin 1 applic TOPICAL DAILY PRN #0 11/16/17 02/23/21 History omeprazole 40 mg PO QAM #0 cap 11/16/17 02/23/21 History acetaminophen [Tylenol Arthritis] 1,300 mg PO Q12H PRN 02/23/21 02/23/21 History alendronate 70 mg PO WK 02/23/21 02/23/21 History hydrochlorothiazide 12.5 mg PO QAM 02/23/21 02/23/21 History lisinopril 10 mg PO QAM 02/23/21 02/23/21 History trazodone 100 - 150 mg PO HS 02/23/21 02/23/21 History Patient History Medical History (Updated 02/24/21 @ 12:46 by Michela Abdalla MD) GERD (gastroesophageal reflux disease) HTN (hypertension) No pertinent family history Osteoarthritis Osteoporosis Surgical History (Updated 02/23/21 @ 15:22 by Lowell Garcia) No pertinent past surgical history Social History Smoking Status: Unknown if ever smoked Second Hand Exposure: No; Do You Dip or Chew Tobacco: No; Tobacco Cessation Education Requested by Patient: No Hx Alcohol Use: No Hx Substance Use: No Preferred Language: Slovak Communication Ability: Effective Beliefs That Will Affect Care: None Current Living Situation: Spouse Other Information That Helps Us Care for You: Yes Feels Safe at Home: Yes Safety Concerns: Feels Safe At This Time Assistive Devices: None Review of Systems Review of Systems: All systems reviewed & are unremarkable except as noted in HPI & below Physical Exam Physical Exam: Physical Exam: Constitutional: appearance nourished, healthy and normal Ears, Nose, Mouth and Throat: mucous membranes moist, no injection and skin normal, eyes normal Cardiovascular: normal S-1 and S-2 and regular rate and rhythm Respiratory: clear to auscultation (CTA) Musculoskeletal: no peripheral edema and good distal pulses Skin: no stigmata of neurocutaneous disease noted and normal and intact Eyes: extraocular muscles intact (EOMI) and pupils equal, round and reactive to light (PERRL) NEUROLOGIC EXAMINATION: Mental status: Alert and interactive Oriented to full date and location Oriented to person Speech fluent with no evidence of aphasia Cranial Nerves smile eye brow raise symmetric Reflexes: Deep tendon reflexes were symmetrical and graded 2/5 down going toes Sensory: light and cool touch intact Coordination: finger to nose no bi pass Gait/Stance: Posture sitting up in bed,no dizziness with moving head side to side or up and down Motor: Negative for pronator drift of out stretched arms with eyes closed. 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 triceps 5/5 bilaterally hip flex plantar flex ext 5/5 Results & Data ([facility]) Vital Signs (Past 12 Hours) Vital Signs Temp Pulse Pulse Resp BP Pulse Ox 02/24/21 08:24 37.2 C 91 H 18 114/75 100 02/24/21 03:00 38.4 C H 81 20 138/65 92 02/24/21 00:11 102 H Laboratory Results Abnormal lab results 02/23/21 02/23/21 02/23/21 Range/Units 11:58 11:58 11:58 WBC (4.8-10.8) K/uL RDW Std Deviation 48.1 H (36.4-46.3) fL Plt Count (130-400) K/uL MPV (7.4-10.4) fL Lymph # (Auto) 0.49 L (1.2-3.4) K/uL Immature Gran # (Auto) 0.04 H (0.00-0.02) K/uL Sodium 133 L (136-145) mmol/L BUN 23 H (7-18) mg/dl BUN/Creatinine Ratio 25.9 H (10-20) Glucose 123 H (70-99) mg/dl Calcium 8.2 L (8.5-10.1) mg/dl AST 67 H (15-37) U/L Albumin 3.3 L (3.4-5.0) gm/dl Procalcitonin 0.58 H (0-0.5) ng/ml Urine Appearance (Clear) Urine Protein (Negative) Urine Ketones (Negative) Urine Blood (Negative) Urine Bilirubin (Negative) Ur Leukocyte Esterase (Negative) Urine WBC (Auto) (0-5) /hpf Urine RBC (Auto) (0-4) /hpf U Epithel Cells (Auto) (0-5) /lpf Urine Bacteria (Auto) (Negative) Ur Renal Epithelial Cell (0-5) /lpf Amorphous Sediment (None Prsent) Urine Mucus (None Prsent) Anaplasma Smear 02/23/21 02/24/21 Range/Units 12:35 07:09 WBC 4.10 L (4.8-10.8) K/uL RDW Std Deviation 47.3 H (36.4-46.3) fL Plt Count 81 L (130-400) K/uL MPV 10.7 H (7.4-10.4) fL Lymph # (Auto) (1.2-3.4) K/uL Immature Gran # (Auto) (0.00-0.02) K/uL Sodium (136-145) mmol/L BUN (7-18) mg/dl BUN/Creatinine Ratio (10-20) Glucose (70-99) mg/dl Calcium (8.5-10.1) mg/dl AST (15-37) U/L Albumin (3.4-5.0) gm/dl Procalcitonin (0-0.5) ng/ml Urine Appearance Cloudy A (Clear) Urine Protein 2+ H (Negative) Urine Ketones 1+ H (Negative) Urine Blood 2+ H (Negative) Urine Bilirubin 1+ H (Negative) Ur Leukocyte Esterase 2+ H (Negative) Urine WBC (Auto) >30 H (0-5) /hpf Urine RBC (Auto) 5-10 H (0-4) /hpf U Epithel Cells (Auto) >30 H (0-5) /lpf Urine Bacteria (Auto) 1+ H (Negative) Ur Renal Epithelial Cell 5-10 H (0-5) /lpf Amorphous Sediment Present A (None Prsent) Urine Mucus Present A (None Prsent) Anaplasma Smear See Comment A Diagnostic Findings CT head-No acute intracranial hemorrhage, no midline shift or space occupying lesions. Possible mastoiditis on the right. Please correlate these findings with clinical presentation and prior history of mastoiditis. Atrophic changes of brain parenchyma associated with the axial, dilatation of ventricles. CT abd 1. No hydronephrosis or nephrolithiasis. Fluid-filled urinary bladder. Pelvic ring. Possible developing diverticulitis within inferior right aspect of the pelvis as detailed above. Small hiatal hernia.
[2021-02-24 12:36] LABS: Albumin Level 2.7 gm/dl (3.4-5.0); BUN Creatinine Ratio 24.3 (10-20); Calcium 7.7 mg/dl (8.5-10.1); Creatinine Clr Calc Pharmacy 51.7 ml/min; Est GFR (African American) 70.4 ml/min; Est GFR (Non-African American) 60.8 ml/min; Magnesium 2.2 mg/dl (1.8-2.4); Potassium 3.2 mmol/L (3.5-5.1)
--- NOTE | 2021-02-24 12:44 | Hospitalist Progress Note ---
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 DNR has been ordered. Will start patient doxycycline. Patient reports she did have a tick bite on the back of her neck for roughly 2 weeks ago. Start experiencing symptoms since . Does have history of Lyme disease in the past. Will discontinue vancomycin/ceftriaxone and Flagyl for now. (2) Nausea and vomiting: Currently reports her nausea and vomiting is improved. Have been tolerating clear liquid diet. Continue with Zofran as needed for nausea. -No signs for hematemesis, hematochezia, tarry stools, diarrhea, etc. - CT of the head reviewed showing concern for right-sided mastoiditis, no redness, tenderness, or history of such. She reports dizziness however this is chronic in the past few years, follows with neurology as an outpatient, meclizine improves her symptoms which she did take today and helped. -CT of the abdomen is reviewed showing questionable diverticulitis. Patient denies any GI symptoms including diarrhea or any abdominal pain. - Abd pain associated with pessary - will consult LINOLEUM PRINTER to see if able to be removed here and refitted. (3) UTI (urinary tract infection): -UA appears to be dirty with + esterase, >30 WBC, 1+ bacteria -Patient denies any urinary symptoms including dysuria or increased urinary frequency. -No indication to treat UTI at this point. -She reports having uncomfortable pessary which she has been followed as an outpatient for, reports that it is causing abdominal aching and pain, has difficulty sitting, nearly not able to perform ADLs due to distraction from pain -LINOLEUM PRINTER consult (4) Vertigo: - Hx of Vestibular migraine? followed with neurology as an outpatient for vocal tremor/paralysis? - Reports meclizine helps with sx but that this has been chronic -Appreciate neurology input. PT has been consulted for Giulia maneuver. (5) Hyponatremia: Remains at 133 today. No further episodes of diarrhea. Encouraged p.o. intake. Monitor daily BMP. Hypokalemia -repleted (6) HTN (hypertension): - Holding HCTZ for now - Continue LOG OPERATIONS COORDINATOR lisinopril (7) Osteoarthritis: -History of such, uses Tylenol 1300 mg typically daily for pain - will convert to q6h dosing since do not have extended release tylenol here. (8) Osteoporosis: -Takes Fosamax once weekly on , missed last week's dose due to nausea vomiting. (9) GERD (gastroesophageal reflux disease): -Continue omeprazole 40 mg every morning (10) Anxiety: - may continue trazodone 100 mg HS for sleep, and lorazepam 0.5 mg prn, she typically only uses this once every other day. DVT ppx: - teds, scds CODE: Full code Dispo: From home, likely to remain in the hospital x 1-2 days Admission and Anticipated Discharge Date Admission Date: February 23, 2021 Subjective Patient is awake and alert this morning. She is oriented x3. However she is continuously shivering. Denies feeling cold or any fever. Denies any further episodes of nausea or vomiting. Denies any chest pain, shortness of breath but does have chronic cough. Patient denies any abdominal pain, diarrhea, dysuria or increased urinary frequency. Review of Systems Review of Systems: All systems reviewed & are unremarkable except as noted in HPI & below Physical Exam Physical Exam: General: A&Ox3 HENT: NCAT, MMM, EOMI Eyes: PERRLA Neck: Supple, normal range of motion CVS: normal rate and rhythm Resp: b/l good breath sounds Abdomen: Soft, nondistended and nontender Extremities: No c/c/e Neuro: face symmetric, no focal deficit Skin: warm and dry, no rashes/lesions/errythema MSK: normal ROM, no joint swelling/erythema Results & Data Results & Data ([facility]) Vital Signs (Past 12 Hours) Vital Signs Temp Pulse Resp BP Pulse Ox 02/24/21 12:18 37.8 C H 02/24/21 11:25 39.4 C H 80 20 149/66 H 90 02/24/21 08:24 37.2 C 91 H 18 114/75 100 02/24/21 03:00 38.4 C H 81 20 138/65 92
[2021-02-24 13:18] LABS: Albumin Globulin Ratio 0.9 (0.9-2); Bilirubin,Total 1.1 mg/dl (0.2-1); Total Protein 5.7 gm/dl (6.4-8.2)
[2021-02-24] MEDS ORDERED: POTASSIUM CHLORIDE CRTAB 20 MEQ TABCR PO ONE (13:45)
[2021-02-24] MEDS ORDERED: cefTRIAXone SODIUM 1,000 MG in DEXTROSE 5% 50 ML IV SCH (15:00)
--- NOTE | 2021-02-24 15:58 | Electrocardiogram Report ---
Test Reason : Blood Pressure : / mmHG Vent. Rate : 076 BPM Atrial Rate : 076 BPM P-R Int : 208 ms QRS Dur : 092 ms QT Int : 396 ms P-R-T Axes : 093 001 035 degrees QTc Int : 445 ms Poor data quality, interpretation may be adversely affected Sinus rhythm with Premature supraventricular complexes Otherwise normal ECG When compared with ECG of 16-NOV-2017 09:57, Premature supraventricular complexes are now Present Questionable change in QRS axis ST no longer elevated in Inferior leads Confirmed by Kvng Linares ([id number]) on 02/24/2021 3:58:04 PM Referred By: Confirmed By:Kvng Linares
[2021-02-24] MEDS: ESCITALOPRAM OXALATE 10 MG TAB PO SCH (21:47)
[2021-02-24] MEDS: MIRABEGRON ER 25 MG TAB PO SCH (21:47)
[2021-02-25 07:48] LABS: Hematocrit (blood only) 36.3 % (37-47); Mean Corpuscular Hemoglobin 29.6 pg (25-34); Mean Corpuscular Hgb Conc 33.1 g/dL (32-36); Mean Corpuscular Volume 89.4 fL (80-100); RDW Coefficient of Variation 14.2 % (11.5-14.5); RDW Standard Deviation 47.1 fL (36.4-46.3); Red Blood Count 4.06 M/uL (4.2-5.4); White Blood Count 2.73 K/uL (4.8-10.8)
[2021-02-25] MEDS: PANTOprazole 40 MG TAB PO SCH (07:57)
[2021-02-25] MEDS: lisinopril 10 MG TAB PO SCH (07:57)
[2021-02-25] MEDS: DOXYCYCLINE HYCLATE 100 MG in DEXTROSE 5% 100 ML IV SCH ×2 (08:02→20:32)
[2021-02-25 08:15] LABS: Albumin Level 2.6 gm/dl (3.4-5.0); BUN Creatinine Ratio 23.3 (10-20); Calcium 8.3 mg/dl (8.5-10.1); Creatinine Clr Calc Pharmacy 52.1 ml/min; Est GFR (African American) 72.4 ml/min; Est GFR (Non-African American) 62.5 ml/min; Potassium 3.6 mmol/L (3.5-5.1)
[2021-02-25 08:24] LABS: Albumin Globulin Ratio 0.9 (0.9-2); Bilirubin,Total 0.9 mg/dl (0.2-1); Globulin 2.9 gm/dl (2.5-4.0); Total Protein 5.5 gm/dl (6.4-8.2)
[2021-02-25 09:15] LABS: Mean Platelet Volume 11.4 fL (7.4-10.4); Platelet Count 47 K/uL (130-400); Platelet Estimate Decreased (Normal)
--- NOTE | 2021-02-25 11:41 | Hospitalist Progress Note ---
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 DNR has been ordered. We will continue with the doxycycline. Patient reports she did have a tick bite on the back of her neck for roughly 2 weeks ago. Start experiencing symptoms since . Does have history of Lyme disease in the past. Cancomycin/ceftriaxone and Flagyl were discontinued. Patient remains afebrile. Hemodynamically doing okay with intermittent bradycardia. Leukopenia is further worsening. Will continue to monitor with daily CBC. (2) Nausea and vomiting: Currently reports her nausea and vomiting is improved. Continue with Zofran as needed for nausea. Advance to heart healthy today. -No signs for hematemesis, hematochezia, tarry stools, diarrhea, etc. - CT of the head reviewed showing concern for right-sided mastoiditis, no redness, tenderness, or history of such. She reports dizziness however this is chronic in the past few years, follows with neurology as an outpatient, meclizine improves her symptoms which she did take today and helped. -CT of the abdomen is reviewed showing questionable diverticulitis. Patient denies any GI symptoms including diarrhea or any abdominal pain. - Abd pain associated with pessary - VISUALLY IMPAIRED TEACHER has been consulted.. (3) UTI (urinary tract infection): -UA appears to be dirty with + esterase, >30 WBC, 1+ bacteria -Patient denies any urinary symptoms including dysuria or increased urinary frequency. -No indication to treat UTI at this point. -She reports having uncomfortable pessary which she has been followed as an ou tpatient for, reports that it is causing abdominal aching and pain, has difficulty sitting, nearly not able to perform ADLs due to distraction from pain -VISUALLY IMPAIRED TEACHER consult (4) Vertigo: - Hx of Vestibular migraine? followed with neurology as an outpatient for vocal tremor/paralysis? - Reports meclizine helps with sx but that this has been chronic -Appreciate neurology input. PT has been consulted for Giulia maneuver. (5) Hyponatremia: Resolved. 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 (8) Osteoporosis: -Takes Fosamax once weekly on , missed last week's dose due to nausea vomiting. (9) GERD (gastroesophageal reflux disease): -Continue omeprazole 40 mg every morning (10) Anxiety: - may continue trazodone 100 mg HS for sleep, and lorazepam 0.5 mg prn, she typically only uses this once every other day. DVT ppx: - teds, scds CODE: Full code Dispo: From home, likely to remain in the hospital x 1-2 days Admission and Anticipated Discharge Date Admission Date: February 23, 2021 Subjective Patient reports she is feeling better than she came in with but still not significant. Reports her appetite is poor. Did have episode of vertigo yesterday. Denies any further episodes of nausea and vomiting. Denies any headache or dizziness. Denies any chest pain, shortness of breath, abdominal pain or diarrhea. Rest of the review of systems negative. Review of Systems Review of Systems: All systems reviewed & are unremarkable except as noted in HPI & below Physical Exam Physical Exam: General: A&Ox3 HENT: NCAT, MMM, EOMI Eyes: PERRLA Neck: Supple, normal range of motion CVS: normal rate and rhythm Resp: b/l good breath sounds Abdomen: Soft, nondistended and nontender Extremities: No c/c/e Neuro: face symmetric, no focal deficit Skin: warm and dry, no rashes/lesions/errythema MSK: normal ROM, no joint swelling/erythema Results & Data Results & Data ([facility]) Vital Signs (Past 12 Hours) Vital Signs Temp Pulse Pulse Resp BP Pulse Ox 02/25/21 10:03 51 L 02/25/21 07:09 36.5 C 59 L 20 133/71 96 02/25/21 03:48 36.7 C 56 L 12 118/70 95
--- NOTE | 2021-02-25 15:11 | Neurology Progress Note ---
Date of Service February 25, 2021 Assessment & Plan (1) Vertigo: 1. vertigo does not seem to be a factor at this point, was likely brought on by the infection 2. doxycycline IV currently - primary team for further management 3. low platlets - continue to monitor due to anaplasmosis 4. no MRI needed at this time 5. PT/OT for discharge needs. she can follow up with neurology as needed. (2) UTI (urinary tract infection): 1. treat to culture Admission and Anticipated Discharge Date Admission Date: February 23, 2021 Supervising Physician Co-Signing Physician Notes I have seen and discussed above patient with Dr Joce Mabry, neurology Aleksandra is remarkably better today she is animated she is ambulating with her daughter she is alert oriented and her exam is normal without any nystagmus no ataxia minimal tremor of the outstretched hands and at this point I think neurology can sign off. She is being treated appropriately for her anaplasmosis with doxycycline which will be continued. There is concern about the thrombocytopenia but this is as I understand part of the infectious process. Hematology may need to get involved at some point if the platelet count drops precipitously. From a neurologic aspect the vertigo is historically episodic responsds to Antivert we have had no evidence for significant structural disease and I do not think she needs neurologic follow-up for this issue and in the past while she was seen for a movement disorder issue I am not impressed that there is anything of significance now that needs neurologic follow-up so I do not think she needs to see us after just discharge unless there would be an acute change ordevelopment of another neurologic issue Joce Mabry MD Subjective Aleksandra is an 85 year old female with PMH of HTN, GERD with small hiatal hernia, OA, osteoporosis, anxiety who presented to the [facility] ED 02/23/2021 for not feeling well x 4 days. She was seen at urgent care clinic earlier today for nausea/vomiting started night prior to presentation, weakness, fatigue and malaise which started the morning of admission and tmax of 100.7. She had an episode of vertigo this morning and took meclizine which seemed to improve her dizziness. She has had ongoing issues with dizziness for many months and uses meclizine which improves her symptoms. She was seen by neurology 11/24/2013 for tremor. She also had some blurred vision a faint headache with no room spinning. She di have some balance issues also. She received the COVID-19 vaccine in November. She thinks she is getting better. 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 they also treated her for a UTI which her daughter noted she has a pessery and infections are common. she knows she has the reading of the mastoiditis which was first seen back several years ago and is a chronic findings. She feels ready to go home her daughter is in the room and agrees she is better. PT would like her to have home PT and it has been ordered. She is still a little dizzy when she stands but it passes quickly. denies CP, SOB, abdominal pain, no current N, V. Review of Systems Review of Systems: All systems reviewed & are unremarkable except as noted in HPI & below Physical Exam Physical Exam: Physical Exam: Constitutional: appearance over nourished Ears, Nose, Mouth and Throat: mucous membranes moist, no injection and skin normal, eyes normal Cardiovascular: normal S-1 and S-2 and regular rate and rhythm Respiratory: clear to auscultation (CTA) Musculoskeletal: no peripheral edema and good distal pulses Skin: no stigmata of neurocutaneous disease noted and normal and intact Eyes: extraocular muscles intact (EOMI) and pupils equal, round and reactive to light (PERRL) NEUROLOGIC EXAMINATION: Mental status: Alert and interactive Oriented to full date and location Oriented to person Speech fluent with no evidence of aphasia Cranial Nerves facial symmetric Sensory: no deficit to light or cool touch Coordination: finger to nose Gait/Stance: Posture normal. sitting up in bed Motor: Negative for pronator drift of out stretched arms with eyes closed. 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 5/5 hip flex 5/5 bilaterally Results & Data ([facility]) Vital Signs (Past 12 Hours) Vital Signs Temp Pulse Pulse Resp BP Pulse Ox 02/25/21 12:16 36.7 C 56 L 18 143/74 H 96 02/25/21 10:03 51 L 02/25/21 07:09 36.5 C 59 L 20 133/71 96 02/25/21 03:48 36.7 C 56 L 12 118/70 95 Laboratory Results Abnormal lab results 02/25/21 02/25/21 Range/Units 07:30 07:30 WBC 2.73 L (4.8-10.8) K/uL RBC 4.06 L (4.2-5.4) M/uL Hct 36.3 L (37-47) % RDW Std Deviation 47.1 H (36.4-46.3) fL Plt Count 47 L (130-400) K/uL MPV 11.4 H (7.4-10.4) fL Platelet Estimate Decreased L (Normal) BUN 20 H (7-18) mg/dl BUN/Creatinine Ratio 23.3 H (10-20) Glucose 115 H (70-99) mg/dl Calcium 8.3 L (8.5-10.1) mg/dl AST 124 H (15-37) U/L Total Protein 5.5 L (6.4-8.2) gm/dl Albumin 2.6 L (3.4-5.0) gm/dl Diagnostic Findings previously reviewed
[2021-02-25] MEDS: ESCITALOPRAM OXALATE 10 MG TAB PO SCH (20:32)
[2021-02-25] MEDS: MIRABEGRON ER 25 MG TAB PO SCH (20:32)
[2021-02-25] MEDS: LORazepam 0.5 MG TAB PO PRN (20:36)
[2021-02-26] MEDS ORDERED: KETOROLAC TROMETHAMINE 15 MG/ML VIAL IV ONE (01:16)
--- NOTE | 2021-02-26 01:53 | Communication Note ---
Date of Service: February 26, 2021 Notified by RN of patient fall leading to patient landing on her left wrist. Left wrist progressively becoming more swollen as per RN. Left wrist x-ray as per my interpretation distal radius fracture AP Traumatic radial fracture left Orthopedics consult in a.m. Will relay to AM provider.
--- NOTE | 2021-02-26 07:06 | Orthopedic Consultation ---
Date of Service February 26, 2021 Assessment & Plan (1) Distal radius fracture, left: I explained the diagnosis and treatment options with her. I think that something we can treat conservatively. She will likely be in a splint or cast for up to 6 weeks. This should heal well without surgery. She is fine in the removable cock up wrist splint for now. She is orthopedically stable for discharge. She can follow-up in our office in about a week. Our office phone number is [phone]. History of Present Illness Reason for Consultation: Left distal radius fracture . Requesting Physician: . Attending Physician: Michela Abdalla MD Aleksandra is a pleasant 85-year-old female who is currently admitted for nausea and vomiting. She is actually hoping to go home later today. She is feeling better. Unfortunately very early this morning she was getting up from the side of her hospital bed when she became tangled between the bed sheets and the commode. She fell on her left outstretched hand. She had immediate left wrist pain. An x-ray was obtained of the left wrist which showed a dorsally displaced left distal radius fracture. She was placed in a cock-up wrist splint. Orthopedics was consulted to evaluate and treat. . Allergies Allergy/AdvReac Type Severity Reaction Status Date / Time codeine Allergy Mild ITCHY Verified 02/23/21 14:26 aspirin AdvReac Mild ADBOMINAL Verified 02/23/21 14:26 PAIN morphine AdvReac Mild DISORIENTED Verified 02/23/21 14:26 -"GOONY" Home Medications Medication Instructions Recorded Confirmed Type calcium carbonate-vitamin D3 1 cap PO QAM #0 11/16/17 02/23/21 History [Calcium 600 with Vitamin D3] docusate sodium 100 mg PO BID 7 Days #14 cap 11/16/17 02/23/21 History escitalopram oxalate 10 mg PO HS #0 tab 11/16/17 02/23/21 History fluticasone propionate [Flonase 2 spray INTRANASAL DAILY PRN #0 11/16/17 02/23/21 History Allergy Relief] lorazepam 0.5 mg PO TID PRN #0 tab 11/16/17 02/23/21 History meclizine 25 mg PO TID PRN 10 Days #30 tab 11/16/17 02/23/21 History mirabegron 25 mg PO HS #0 tab 11/16/17 02/23/21 History nystatin 1 applic TOPICAL DAILY PRN #0 11/16/17 02/23/21 History omeprazole 40 mg PO QAM #0 cap 11/16/17 02/23/21 History acetaminophen [Tylenol Arthritis] 1,300 mg PO Q12H PRN 02/23/21 02/23/21 History alendronate 70 mg PO WK 02/23/21 02/23/21 History hydrochlorothiazide 12.5 mg PO QAM 02/23/21 02/23/21 History lisinopril 10 mg PO QAM 02/23/21 02/23/21 History trazodone 100 - 150 mg PO HS 02/23/21 02/23/21 History Past Med/Surg History Medical History GERD (gastroesophageal reflux disease) HTN (hypertension) No pertinent family history Osteoarthritis Osteoporosis Surgical History No pertinent past surgical history Social History Smoking Status: Unknown if ever smoked Second Hand Exposure: No; Do You Dip or Chew Tobacco: No; Tobacco Cessation Education Requested by Patient: No Hx Alcohol Use: No Hx Substance Use: No Preferred Language: Estonian Communication Ability: Effective Beliefs That Will Affect Care: None marital status: Current Living Situation: Spouse Other Information That Helps Us Care for You: Yes Feels Safe at Home: Yes Safety Concerns: Feels Safe At This Time Assistive Devices: None Review of Systems All systems reviewed & are unremarkable except as noted in HPI & below. Physical Exam On physical examination of the left wrist, she is wearing a cock-up wrist spl int. She can move all of her fingers. There is no gross deformity. . Constitutional WD/WN, vitals as above Eyes PERRL, conjunctivae normal, anicteric sclerae ENMT external ear and nose normal, oropharynx normal Neck trachea midline, no thyromegaly Respiratory normal respiratory effort Cardiovascular RRR, no murmur, no edema Gastrointestinal (Abdomen) normal bowel sounds, soft, nontender, no hepatosplenomegaly Psychiatric A+Ox3, euthymic affect Results & Data Results & Data Laboratory Results . Diagnostic Findings X-rays were reviewed of the left wrist and it does show a slightly dorsally displaced left distal radius fracture. It appears to be a stable fracture. . PG Care Time/CCT Total # of Minutes Spent Total Time Spent with Patient: Total time spent is greater than 50% in coordination of care (as documented) at patient's floor/unit and/or counseling patient: Coding Level of Care Code 43428 Inpt Consult Level 4 Diagnoses Distal radius fracture, left S52.502A
--- NOTE | 2021-02-26 07:37 | XRay Report ---
XR wrist LT min 3V routine CLINICAL HISTORY: L wrist pain COMPARISON: None FINDINGS: Note is made of an acute comminuted displaced distal left radial fracture with intra-artic ular extension. There is dorsal tilt of the distal component. There is severe osteoarthritis of the l eft first carpometacarpal joint. IMPRESSION: 1. Acute comminuted displaced distal left radial fracture with intra-articular extension and dorsal t ilt of the distal component. 2. Severe osteoarthritis of the left first carpometacarpal joint. ACT 112: Negative or not required by law. Electronically signed by: Steffen Calderon M.D. 02/26/2021 7:35 AM
[2021-02-26] MEDS: PANTOprazole 40 MG TAB PO SCH (08:03)
[2021-02-26] MEDS: lisinopril 10 MG TAB PO SCH (08:03)
[2021-02-26] MEDS: DOXYCYCLINE HYCLATE 100 MG in DEXTROSE 5% 100 ML IV SCH ×2 (08:03→20:24)
[2021-02-26 08:47] LABS: Hematocrit (blood only) 36.8 % (37-47); Hemoglobin 12.6 g/dL (12.0-16.0); Mean Corpuscular Hemoglobin 30.2 pg (25-34); Mean Corpuscular Hgb Conc 34.2 g/dL (32-36); Mean Corpuscular Volume 88.2 fL (80-100); RDW Coefficient of Variation 14.4 % (11.5-14.5); RDW Standard Deviation 46.8 fL (36.4-46.3); Red Blood Count 4.17 M/uL (4.2-5.4); White Blood Count 2.63 K/uL (4.8-10.8)
[2021-02-26 08:51] LABS: Mean Platelet Volume 11.9 fL (7.4-10.4); Platelet Count 51 K/uL (130-400)
[2021-02-26 09:28] LABS: Albumin Level 2.7 gm/dl (3.4-5.0); BUN Creatinine Ratio 24.8 (10-20); Calcium 8.4 mg/dl (8.5-10.1); Creatinine Clr Calc Pharmacy 54.5 ml/min; Est GFR (African American) 76.7 ml/min; Est GFR (Non-African American) 66.2 ml/min; Potassium 3.2 mmol/L (3.5-5.1)
[2021-02-26 09:31] LABS: Albumin Globulin Ratio 0.9 (0.9-2); Bilirubin,Total 0.8 mg/dl (0.2-1); Globulin 3.1 gm/dl (2.5-4.0); Total Protein 5.8 gm/dl (6.4-8.2)
[2021-02-26] MEDS ORDERED: POTASSIUM CHLORIDE CRTAB 20 MEQ TABCR PO STA (09:38)
--- NOTE | 2021-02-26 09:39 | Hospitalist Progress Note ---
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 Currently on doxycycline. Patient had reported she did have a tick bite on the back of her neck for roughly 2 weeks ago. Does have history of Lyme disease in the past. Patient remains afebrile. Hemodynamically doing okay with intermittent bradycardia. Telemetry show sinus with 1st degree block Still leukopenic. 2.63 today (2) Nausea and vomiting: Currently reports her nausea and vomiting has resolved. CT of the head reviewed showing concern for right-sided mastoiditis, no redness, tenderness, or history of such. She reports dizziness however this is chronic in the past few years, follows with neurology as an outpatient, meclizine improves her symptoms which she did take today and helped. CT of the abdomen is reviewed showing questionable diverticulitis. Patient denies any GI symptoms including diarrhea or any abdominal pain. (3) UTI (urinary tract infection): UA appears to be dirty with + esterase, >30 WBC, 1+ bacteria Patient denies any urinary symptoms including dysuria or increased urinary frequency. No indication to treat UTI at this point. Abd pain was thought may be associated with pessary and FIRE PREVENTION CAPTAIN was consulted. However, this morning patient reports that she is feeling her usual self and wanted gynecology consult to be canceled stating she would prefer to follow-up with her outpatient flat sheet maker (4) Vertigo: Hx of Vestibular migraine? followed with neurology as an outpatient for vocal tremor/paralysis? Reports meclizine helps with sx but that this has been chronic Neurology evaluation and recommendations appreciated (5) Hyponatremia: Resolved. Hypokalemia K is 3.2 today. Replete and monitor (6) HTN (hypertension): Holding HCTZ for now Continue home lisinopril (7) Osteoporosis: Takes Fosamax once weekly on , missed last week's dose due to nausea vomiting. (8) Osteoarthritis: (9) Distal radius fracture, left: Acute left radius fracture following a fall Ortho evaluation noted. We will manage conservatively and follow-up with Ortho outpatient. PT had evaluated yesterday and at the time recommended rehab. However, reevaluation today even with the fracture suggest improvement in patient activity and recommendation change to home with home health and PT. (10) GERD (gastroesophageal reflux disease): Continue omeprazole 40 mg every morning (11) Anxiety: May continue trazodone 100 mg HS for sleep, and lorazepam 0.5 mg prn, she typically only uses this once every other day. DVT ppx: - teds, scds CODE: Full code Dispo: Plan for discharge home with home health and PT once stable Admission and Anticipated Discharge Date Admission Date: February 23, 2021 Subjective 85-year-old female with PMHx of hypertension, GERD with small hiatal hernia, osteoarthritis, osteoporosis, anxiety, who presents to the ER for not feeling well x 4 days. Being managed for anaplasmosis Patient had a fall yesterday night on outstretched left hand. Patient describes the fall as mechanical stating that she tried to get up on her own and had her leg tangled with the commode causing her to fall on outstretched left hand which subsequently became painful and swollen with x-ray showing radial fracture Reports left wrist pain Review of Systems Constitutional: + weakness Eyes: no problem reported Ear, Nose, Mouth, Throat: no dizziness and no nasal congestion Respiratory: no cough, no dyspnea and no pain on inspiration Cardiovascular: no chest pain, no dyspnea and no orthopnea Gastrointestinal: no nausea, no vomiting and no diarrhea/loose stools Genitourinary: + urinary incontinence (Chronic); no dysuria, no difficulty urinating and no hematuria Chronic occasional low abd pain Musculoskeletal: Left wrist pain Neurologic: no localized weakness, no paresthesia and no dizziness Psychiatric: no depression and no anxiety Physical Exam Constitutional: + well hydrated; no acute distress Eyes: PERRL, conjunctivae normal, anicteric sclerae ENMT: external ear and nose normal, oropharynx normal Respiratory: normal respiratory effort, lungs clear to auscultation Cardiovascular: RRR, no murmur, no edema Gastrointestinal (Abdomen): normal bowel sounds, soft, nontender, no hepatosplenomegaly Musculoskeletal: Left wrist in splint Neurologic: PERRL, EOMI, accommodation nl, no face palsy, no dysarthria Psychiatric: A+Ox3, euthymic affect Genitourinary: no CVA tenderness Results & Data Results & Data ([facility]) Vital Signs (Past 12 Hours) Vital Signs Temp Pulse Pulse Pulse Resp BP BP 02/26/21 08:00 36.4 C L 61 14 160/75 H 02/26/21 06:20 56 L 02/26/21 04:59 36.6 C 64 18 125/74 02/26/21 02:12 60 02/25/21 23:37 36.7 C 62 18 155/75 H Pulse Ox 02/26/21 08:00 94 02/26/21 06:20 02/26/21 04:59 96 02/26/21 02:12 02/25/21 23:37 93 Laboratory Results Laboratory Results - last 24 hr 02/26/21 02/26/21 08:31 08:31 WBC 2.63 L RBC 4.17 L Hgb 12.6 Hct 36.8 L MCV 88.2 MCH 30.2 MCHC 34.2 RDW Std Deviation 46.8 H RDW Coeff of Jackie 14.4 Plt Count 51 L MPV 11.9 H Sodium 138 Potassium 3.2 L Chloride 106 Carbon Dioxide 23 Anion Gap 8.0 BUN 20 H Creatinine 0.82 Est Cr Clr Drug Dosing 54.5 Est GFR ( Amer) 76.7 Est GFR (Non-Af Amer) 66.2 BUN/Creatinine Ratio 24.8 H Glucose 134 H Calcium 8.4 L Total Bilirubin 0.8 AST 108 H ALT 62 Alkaline Phosphatase 51 Total Protein 5.8 L Albumin 2.7 L Globulin 3.1 Albumin/Globulin Ratio 0.9
[2021-02-26] MEDS: ACETAMINOPHEN 325 MG TAB PO PRN ×2 (09:56→23:04)
[2021-02-26] MEDS: MIRABEGRON ER 25 MG TAB PO SCH (20:22)
[2021-02-26] MEDS: ESCITALOPRAM OXALATE 10 MG TAB PO SCH (20:22)
[2021-02-27 07:49] LABS: Hematocrit (blood only) 37.1 % (37-47); Hemoglobin 12.6 g/dL (12.0-16.0); Mean Corpuscular Hemoglobin 30.3 pg (25-34); Mean Corpuscular Volume 89.2 fL (80-100); Mean Platelet Volume 12.2 fL (7.4-10.4); Platelet Count 86 K/uL (130-400); RDW Coefficient of Variation 14.4 % (11.5-14.5); RDW Standard Deviation 47.3 fL (36.4-46.3); Red Blood Count 4.16 M/uL (4.2-5.4)
[2021-02-27 07:59] LABS: BUN Creatinine Ratio 18.7 (10-20); Calcium 8.5 mg/dl (8.5-10.1); Creatinine Clr Calc Pharmacy 56.6 ml/min; Est GFR (African American) 80.2 ml/min; Est GFR (Non-African American) 69.2 ml/min; Magnesium 2.2 mg/dl (1.8-2.4); Phosphorus 2.2 mg/dl (2.5-4.9); Potassium 3.9 mmol/L (3.5-5.1)
[2021-02-27] MEDS: ACETAMINOPHEN 325 MG TAB PO PRN (08:00)
[2021-02-27] MEDS: DOXYCYCLINE HYCLATE 100 MG in DEXTROSE 5% 100 ML IV SCH (08:00)
[2021-02-27] MEDS: lisinopril 10 MG TAB PO SCH (08:01)
[2021-02-27] MEDS: PANTOprazole 40 MG TAB PO SCH (08:01)
--- NOTE | 2021-02-27 10:47 | Discharge Summary ---
Date of Service February 27, 2021 Admission HPI Per Admitting Provider This is an 85-year-old female with PMHx of hypertension, GERD with small hiatal hernia, osteoarthritis, osteoporosis, anxiety, who presents to the ER for not feeling well x 4 days. She was seen at urgent care clinic earlier today. Complaints of nausea/vomiting started last night, weakness, fatigue and malaise today, with tmax of 100.7 here in the ER. She had fever of 101.7 at home yesterday, but resolved with tylenol. She had an episode of vertigo this morning and took meclizine which seemed to improve her dizziness. She has had ongoing issues with dizziness for many months. She has previously followed with neuro. Pt notes she typically uses meclizine which improves her sx, at least daily. Pt reports some blurred vision last night and currently a faint headache. She does not endorse room spinning. Pt did have issues with balance earlier today where typically she walks without difficulty. Pt was concerned that she had COVID but on testing she is COVID-19 negative in the ER. She received the COVID-19 vaccine in November. Her daughter is present with her here at bedside and supports the history. UA is dirty, positive esterase, >30 WBC, 1+ bacteria, WBC = 10.56. Febrile with Tmax of 100.7. She is slightly hyponatremic with sodium of 133. procal is 0.58. CT of the head is concerning for a possible right sided mastoiditis however the patient does not provider ROS regarding pain, drainage from ear, meningeal symptoms. CT of the abd/pelvis is concerning for a possible diverticulitis as well. Admission Exam Per Admitting Provider General: awake, alert, no apparent distress Head: Normocephalic, atraumatic ENT: PERRL, EOMI, no pharyngeal exudate, mucous membranes slightly dry Chest: Clear to auscultation, on room air, no adventitious breath sounds Cardiac: Regular rate and rhythm, no murmur, no JVD, normal peripheral pulses, good capillary refill Abdominal: NABS x 4 quadrants, soft, nondistended, nontender to palpation, no rebound or guarding Extremities: Normal inspection, no peripheral edema or erythema, calfs nontender to palpation Psych: Normal mood and affect Neuro: AAO x 3, strength intact bilaterally and rated 5/5, no motor deficits, speech is clear, no peripheral sensory deficits Principal Diagnosis Anaplasmosis Asymptomatic bacteriuria Mechanical fall Left wrist fracture Leukopenia Discharge Exam Constitutional + well hydrated; no acute distress Eyes PERRL, conjunctivae normal, anicteric sclerae ENMT external ear and nose normal, oropharynx normal Respiratory normal respiratory effort, lungs clear to auscultation Cardiovascular RRR, no murmur, no edema Gastrointestinal (Abdomen) normal bowel sounds, soft, nontender, no hepatosplenomegaly Neurologic PERRL, EOMI, accommodation nl, no face palsy, no dysarthria Psychiatric A+Ox3, euthymic affect Genitourinary no CVA tenderness Discharge Data Allergies Allergy/AdvReac Type Severity Reaction Status Date / Time codeine Allergy Mild ITCHY Verified 02/23/21 14:26 aspirin AdvReac Mild ADBOMINAL Verified 02/23/21 14:26 PAIN morphine AdvReac Mild DISORIENTED Verified 02/23/21 14:26 -"GOONY" Consultations 02/23/21 15:38 ED Decision to Admit Stat 02/23/21 19:31 Consult Neurology Routine 02/26/21 02:11 Consult Orthopedic Surgery Routine Ordered Studies 02/23/21 13:31 CT abd pelvis wo con Stat [facility], [phone] CT Scan Report Patient: CAMERON ESCOTO AAdmit Date: 02/23/21MR#: [id number]: [address] RDAcct ID:[id number]: Date: 1935[facility] Zip: [place], [place] [address]Uez: 85Location: EDSex: FRoom/Bed:Att Phy:Diagnosis: DIZZY,WEAK,NAUSEOUSPri Phy: Merritt Mca, MDService Date: 02/23/21Fam Phy:Interpreting Phy: Deidre Hu DOAdmit Phy: Ordering Phy: Lowell Garcia MD cc: ~ CT SCAN OF THE ABDOMEN AND PELVIS WITHOUT CONTRAST CLINICAL HISTORY: fever hematuria COMPARISON STUDY: No previous studies for comparison. TECHNIQUE: CT scan of the abdomen and pelvis was performed from the lung bases to the proximal femurs. Images are reviewed in the axial, sagittal, and coronal planes. IV contrast was not administered for this examination. A dose lowering technique was utilized adhering to the principles of ALARA. CT DOSE: 1115.65 mGy.cm FINDINGS: Lower chest: Mild atelectasis at the dependent portions of bilateral lower lobes. Liver: The unenhanced liver is normal in size, contour, and attenuation. There is no intrahepatic biliary ductal dilatation. Gallbladder: Unremarkable. Spleen: Spleen is prominent. Multiple calcification within splenic parenchyma are seen and could represent sequela from remote granulomatous process. Pancreas: Unremarkable. Adrenal glands: Unremarkable. Kidneys: No hydronephrosis or nephrolithiasis seen. Extrarenal pelvis is seen on the right. Bowel: Small hiatal hernia is seen. Duodenal diverticulum was demonstrated. Bowel loops are nondilated. Appendix is not well seen. Diverticulosis of sigmoid colon is seen. Questionable focal area of slightly increased fat stranding surrounding distal sigmoid colon within inferior portion of the right pelvis is seen and might represent developing diverticulitis (5/377) Peritoneum: There is no intraperitoneal free air or abdominal ascites. Vasculature: The abdominal aorta is tortuous with scattered calcifications of its wall. No aortic dilatation is seen. Adenopathy: None. Pelvic viscera: Normal appearance of the bladder which is fluid-filled. Uterus is surgically absent. Pelvic ring is demonstrated. Skeletal structures: Multilevel degenerative changes of the spine. IMPRESSION: 1. No hydronephrosis or nephrolithiasis. 2. Fluid-filled urinary bladder. Pelvic ring. 3. Possible developing diverticulitis within inferior right aspect of the pelvis as detailed above. 4. Small hiatal hernia. 5. Other findings as above. CT head/brain wo con Stat No acute intracranial hemorrhage, no midline shift or space occupying lesions seen. Evaluation is slightly limited due to motion and beam hardening artifact. Mild atrophic changes of brain parenchyma are seen and associated with ex vacuo dilatation of ventricles. No significant white matter changes are seen. No acute depressed skull fractures seen. Visualized paranasal sinuses are patent and well-aerated. Partial opacification of inferior right mastoid air cells might represent mastoiditis. IMPRESSION: No acute intracranial hemorrhage, no midline shift or space occupying lesions. Possible mastoiditis on the right. Please correlate these findings with clinical presentation and prior history of mastoiditis. 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 Currently on doxycycline. Patient had reported she did have a tick bite on the back of her neck for roughly 2 weeks ago. Does have history of Lyme disease in the past. Patient remains afebrile. Hemodynamically doing okay with intermittent bradycardia. Had leukopenia with kianna of 2.63. Improving now 3.8 Discharged on po doxycycline for 7 more days to complete therapy (2) Nausea and vomiting: Currently reports her nausea and vomiting has resolved. CT of the head reviewed showing concern for right-sided mastoiditis, no redness, tenderness, or history of such. She reports dizziness however this is chronic in the past few years, follows with neurology as an outpatient, meclizine improves her symptoms which she did take today and helped. CT of the abdomen is reviewed showing questionable diverticulitis. Patient denies any GI symptoms including diarrhea or any abdominal pain. (3) UTI (urinary tract infection): UA appears to be dirty with + esterase, >30 WBC, 1+ bacteria Urine culture grew alpha strep not enterococcus Patient denies any urinary symptoms including dysuria or increased urinary frequency. Asymptomatic bacteruria Patient has a pessary and needs to follow up with her body designer (4) Vertigo: Hx of Vestibular migraine? followed with neurology as an outpatient for vocal tremor/paralysis? Continue meclizine (5) Hyponatremia: Hypokalemia Resolved (6) HTN (hypertension): Continue home meds (lisinopril and HCTZ) HCTZ was held while inpatient due to electrolyte abnormalities Resumed on discharge. PCP to monitor (7) Osteoporosis: Takes Fosamax once weekly on , missed last week's dose due to nausea vomiting. (8) Osteoarthritis: (9) Distal radius fracture, left: Patient had a mechanical fall while inpatient and fell on outstretched hand Acute left radius fracture following a fall Ortho evaluated and recommended manage conservatively Patient to follow-up with Ortho outpatient next week (10) GERD (gastroesophageal reflux disease): Continue omeprazole 40 mg every morning (11) Anxiety: Review of PDMP does not show lorazepam last fill was 05/2019. Discontinued on discharge med list Continue trazodone Total Time Total Time Spent Total Time Spent (In Minutes): 40 Total Time Includes: Examination of the Patient, Discharge Planning and Medication Reconciliation Discharge Plan Discharge Items Patient Disposition: Home - Home Health Services Reason For Visit: HYPONATREMIA,NAUSEA,VOMITING Discharge Diagnosis: Anaplasmosis Asymptomatic bacteriuria Mechanical fall Left wrist fracture Leukopenia Activity: As commented below Activity Comment: Continue using the removable cock up wrist splint for now Non-emergency contact: Primary Care Provider and Surgeon Call non-emergency contact if: you have any medication questions and your symptoms worsen Follow-up/Referrals: Merritt Mac MD [Primary Care Provider] - (Date & Time 03/05/2021 11:00 AM Provider Merritt Mac MD [facility] ) Diet: Heart Healthy Addtl Attending Provider Instructions: Mrs Escoto. You came to the hospital complaining of nausea, vomiting, fatigue and malaise. You were evaluated and found to have anaplasmosis. You were treated with doxycycline. You would need to continue this for another 7 days to complete treatment. Please do not take your calcium carbonate-Vit D pill at the same time with the doxycycline. You can take your calcium pill at noon While in the hospital, he had a mechanical fall and landed on your left hand causing a left radial fracture. You were evaluated by orthopedics surgeon and put on a wrist splint. Please continue to use the splint. Initial follow-up with orthopedic in a week. Orthopedic office phone number is [phone]. Please ensure follow up with your Primary Doctor It was a pleasure taking care of you. Pending Studies at Discharge: No Stand-Alone Forms: My [facility] Sitesimon, Smoking Cessation Medications and DC Order Prescriptions: New doxycycline hyclate 100 mg tablet,delayed release (DR/EC) 100 mg PO BID 7 Days Qty: 14 RF: 0 Continued docusate sodium 100 mg Capsule 100 mg PO BID 7 Days Qty: 14 RF: 0 nystatin 100,000 unit/gram Powder 1 applic TOPICAL DAILY PRN (Reason: Skin Irritation) Qty: 0 RF: 0 escitalopram oxalate 10 mg Tablet 10 mg PO HS Qty: 0 RF: 0 omeprazole 20 mg Tablet,Delayed Release (Dr/Ec) 40 mg PO QAM Qty: 0 RF: 0 calcium carbonate-vitamin D3 [Calcium 600 with Vitamin D3] 600 mg(1,500mg) - 500 unit Capsule 1 cap PO QAM Qty: 0 RF: 0 meclizine 25 mg Tablet 25 mg PO TID PRN (Reason: Dizziness) 10 Days Qty: 30 RF: 0 mirabegron 25 mg Tablet Extended Release 24 Hr 25 mg PO HS Qty: 0 RF: 0 fluticasone propionate [Flonase Allergy Relief] 50 mcg/actuation [place],Suspension 2 spray INTRANASAL DAILY PRN (Reason: Allergy Symptoms) Qty: 0 RF: 0 alendronate 70 mg tablet 70 mg PO WK RF: 0 acetaminophen 650 mg Tablet Extended Release 1,300 mg PO Q12H PRN (Reason: Pain) RF: 0 trazodone 100 mg tablet 100 - 150 mg PO HS RF: 0 lisinopril 10 mg tablet 10 mg PO QAM RF: 0 hydrochlorothiazide 12.5 mg tablet 12.5 mg PO QAM RF: 0 Discontinued lorazepam 0.5 mg Tablet 0.5 mg PO TID PRN (Reason: Anxiety) Qty: 0 RF: 0 Discharge Orders: Discharge Order (Routine); Ordered 02/27/21 Ordered By: Lexie Owens Admission Data Admit Date/Time: 02/23/21 15:41 Attending Provider: Lexie Owens I. Admit Provider: Brenda Yanes Primary Care Provider: Merritt Mac Other Providers: Brenda Yanes ; Joce Mabry ; [facility] ; [place] ; Elena Kraus ; Binh Huynh ; Maikel Page ; Siddharth Laws ; Velia Willis ; Ny Atwood ; Cindy Banks ; Zeke Perez ; Olya Webster ; J Luis Brown ; Gurpreet Banks ; Moiz Ramírez ; Moiz Rajan ; Yudith Slater ; Michela Abdalla Other Interventions: Discharge Summary Assessment (RN) Last Done: 02/27/21 11:04
== END 2021-02-27 12:59 | disposition home health service (06) | DRG 868 ==
LOC: ED 11:33 → 2N 15:41 → SUATTDRO 15:41 → 2N 16:48